=== PATIENT | female | born 1945 | race Caucasian/White ===

== ENCOUNTER → 2017-12-11 16:37 | Outpatient (CLI) | payer MEDICARE, SELFPAY | PROVIDERS: Family Provider Family Medicine; PCP Family Medicine; Visit Provider Family Medicine | DX: M54.5 Low back pain (principal) | CPT/HCPCS: 72110 ==

== ENCOUNTER → 2017-12-21 10:54 | Outpatient (CLI) | payer MEDICARE, SELFPAY | PROVIDERS: Family Provider Family Medicine; PCP Family Medicine; Visit Provider Family Medicine | DX: M54.5 Low back pain (principal) | CPT/HCPCS: 72148 ==

== ENCOUNTER 2018-07-04 19:37 | Observation (INO) | payer MEDICARE, SELFPAY ==
[2018-07-04 19:37] VITALS: BP 166/58; PULSE 74; RESP 14; RESP 19; TEMP 36.6; O2SAT 100; O2SAT 98; BMI 22.6
--- NOTE | 2018-07-04 19:50 | EKG12_ITS ---
Test Reason : CP Blood Pressure : / mmHG Vent. Rate : 062 BPM Atrial Rate : 062 BPM P-R Int : 114 ms QRS Dur : 080 ms QT Int : 436 ms P-R-T Axes : 113 056 049 degrees QTc Int : 442 ms Normal sinus rhythm Normal ECG Confirmed by ANALIA DURAN, DENTON ([id number]), editorial project manager ALIREZA MORATAYA ([id number]) on 07/09/2018 8:43:18 AM Referred By: SUBHASH Confirmed By:DENTON HELMS MD
--- NOTE | 2018-07-04 19:55 | RAD_ITS ---
STUDY: X-RAY CHEST REASON FOR EXAM: Female, 73 years old. Chest pain. TECHNIQUE: Single frontal view of the chest. COMPARISON: None July 31, 2016. FINDINGS: There is no new focal consolidation. Normal size heart. Normal mediastinum and jerry. Normal visualized pulmonary arteries. Normal visualized aortic arch and descending thoracic aorta. Normal visualized thoracic spine. Normal visualized ribs, clavicles, and shoulders. There is no demonstrated abnormality of the visualized soft tissue structures of the upper abdomen. RAD/Chest 1 View (Portable) IMPRESSION: No acute cardiopulmonary process. Electronically Signed: Neva Agudelo MD at 20:11 EST Tel , Service support ,
[2018-07-04 20:13] VITALS: O2SAT 100
--- NOTE | 2018-07-04 20:20 | ED.RN ---
WHILE WALKING TO TRIAGE FROM THE SCALE PT BECAME LIMP. SHE WAS ASSISTED TO THE GROUND. I THEN LIFTED HER TO THE BED IN THE TREATMENT ROOM. RN PROTOCOLS INITIATED AND EKG OBTAINED. Barron HOLT RN 2020
[2018-07-04 20:24] LABS: Absolute Lymphocyte Count 2.76 X10^3/ul (0.83-4.51); Absolute Neutrophil Count 2.3 X10^3/uL (2.0-7.7); Basophil# 0.07 X10^3/uL; Basophil% 1.3 % (0-1); Eosinophil# 0.11 X10^3/uL; Hematocrit 38.4 % (37-47); Hemoglobin 12.5 g/dl (12.0-15.0); Lymphocyte # 2.76 X10^3/ul (4.0); Lymphocyte % 49.7 % (19-41); Mean Corp Hgb Conc 32.6 g/gl (32-36); Mean Corpuscular Hgb 29.9 pg (27.0-32.0); Mean Corpuscular Volume 91.9 fL (81-99); Mean Platelet Vol. 10.7 fl (6.2-12.0); Monocyte# 0.27 X10^3/uL; Monocyte% 4.9 % (0-10); Neutrophil # 2.34 X10^3/uL (2.7-7.7); Neutrophil % 42.1 % (47-70); Platelet Count 253 K/mm3 (150-450); RBC Distribution Width CV 13.2 % (11.6-14.6); RBC Distribution Width SD 44.1 fl (35.1-43.9); Red Blood Count 4.18 M/mm3 (4.2-5.4); White Blood Count 5.6 K/mm3 (4.4-11.0)
[2018-07-04 20:27] LABS: POSITIVE COUNT NO; POSITIVE DIFFERENTIAL NO; POSITIVE MORPHOLOGY NO
[2018-07-04 20:41] LABS: Anion Gap 8 (5-15); BUN 16 mg/dL (7-18); BUN/Creat Ratio 17.3 RATIO (10-20); Calcium,Total 8.7 mg/dL (8.5-10.1); Chloride 111 mmol/L (98-107); Creatinine, Serum 0.92 mg/dL (0.55-1.02); EST Glomerular Filtration Rate 63 mL/min (>60); Est Glom Filt Rate - Afr Amer 76 mL/min (>60); Estimated Creatinine Clearance 43.07 ml/min; Glucose 87 mg/dL (74-106); Potassium 3.3 mmol/L (3.5-5.1); Sodium Level 142 mmol/L (136-145)
[2018-07-04] MEDS: Aspirin 81 MG TAB.CHEW 243 MG PO (21:07)
[2018-07-04 21:16] LABS: D-Dimer Quantitative (DVT/PE) 0.42 FEU/ug/m (0.27-0.49)
[2018-07-04 21:18] VITALS: BP 166/64; PULSE 50; RESP 16; O2SAT 100
--- NOTE | 2018-07-04 21:55 | PCM.HP.STD ---
Problem List (1) Chest pain Status: Acute History of Present Illness Date of Admission: 07/04/18 Chief Complaint: Palpitations The patient is a 73 year old F with a significant history of lupus; former tobacco abuse and hypothyroidism who presented to the emergency department because of fluttering of her chest that started a few hours before her presentation. She reports that the fluttering of her chest turned to pressure at the left side of her chest radiating to her back. She describes her chest pain as 5 out of 10. She denies any nausea, vomiting or diaphoresis. She reports jerky movement of her body and feeling cold. She denies any aggravating or ameliorating factors to her chest pain. At home she took 1 tablet of baby aspirin and she was given 3 tablets baby aspirin at the emergency departments. While on the scale at ED triage she reported a syncopal episode. However triage nurse did not think the patient actually passed out. Associated with her symptoms is weakness. She reported that at home she checked her blood pressure and although she does not have a history of high blood pressure her initial blood pressure was 186/71; and her repeated blood pressure in about 20 minutes time was 181/69. She reports numbness of her lips that has disappeared by the time of my examination. Associated with her symptoms is lightheadedness. She reported that many years ago as part of a workup for lupus she had a stress test. Patient reported that her mother from a heart attack at the age of 49. However she reported that her mother had an unhealthy lifestyle including smoking. Past Medical History Past Medical History (Chronic Problems): Chronic Problems Hypothyroidism (Chronic) HLD (hyperlipidemia) (Chronic) Allergies meperidine HCl [From Demerol] Allergy (Verified 07/04/18 19:45) Other povidone-iodine [From Betadine] Allergy (Verified 07/04/18 19:45) Rash soap [From Betadine] Allergy (Verified 07/04/18 19:45) Rash trimethobenzamide HCl [From Tigan] Allergy (Verified 07/04/18 19:45) Other acetaminophen [From Vicodin] Adverse Reaction (Verified 07/04/18 19:45) Nausea/Vom/Diarrhea ezetimibe [From Zetia] Adverse Reaction (Verified 07/04/18 19:45) Pain in joints hydrocodone bitartrate [From Vicodin] Adverse Reaction (Verified 07/04/18 19:45) Nausea/Vom/Diarrhea oxycodone HCl [From Percodan] Adverse Reaction (Verified 07/04/18 19:45) Nausea/Vom/Diarrhea oxycodone terephthalate [From Percodan] Adverse Reaction (Verified 07/04/18 19:45) Nausea/Vom/Diarrhea Home Medications: Ambulatory Orders Medication Instructions Recorded Levothyroxine Sodium [Synthroid] 75 mcg PO DAILY 07/04/18 traMADol [Ultram (G)] 50 mg PO Q8H PRN 07/04/18 Surgical History: cholecystectomy, colectomy, hysterectomy, fusion Lives: Spouse/ Significant Other Smoking Status: Former smoker Alcohol: None - *Family History Maternal History Items: Heart Disease - Her mother from heart attack at the age of 49. Review of Systems Constitutional: Denies: Fever, Weight Change HEENT: Denies: Head Aches, Sinus Congestion, Sinus Drainage Cardiovascular: Reports: Chest Pain, Palpitations, Syncope Respiratory: Denies: Cough, Shortness of breath at rest, Sputum production Gastrointestinal: Denies: Abdominal Pain, Nausea, Vomiting Genitourinary: Denies: Dysuria Musculoskeletal: Denies: Joint Pain, Joint Tenderness Skin: Denies: Rash, Wounds Neurological: Reports: Numbness - MOUTH. Denies: Focal weakness, Tingling Psychiatric: Denies: Anxiety, Depression, Homicidal Ideations, Suicidal Ideations Hematologic/ Lymphatic: Denies: Easy Bruising, Easy Bleeding VTE Information - Inpt Only VTE Present on Admission: No VTE Mechan Device Prophylaxis: None VTE Pharm Prophylaxis ordered?: Yes - Physical Exam General: Alert, Oriented x3, Cooperative HEENT: Atraumatic, PERRLA, EOMI, Normocephalic Neck: Supple, No JVD, Negative Carotid Bruits Lungs: Clear to auscultation, Normal air movement Cardiovascular: Regular rate, No murmurs Abdomen: Bowel Sounds Present, Soft, Non Tender Extremities: No edema, Capillary Refill Less than 3 Seconds Skin: No rashes, No breakdown Musculoskeletal: No Tenderness to Palpation of Joints or Extremities Neurological: Neuro grossly intact Psych/Mental Status: Normal Affect, Appropriate Vital Signs Temp Pulse Resp BP Pulse Ox 97.9 F 50 L 16 166/64 H 100 07/04/18 19:37 07/04/18 21:18 07/04/18 21:18 07/04/18 21:18 07/04/18 21:18 Oxygen Flow Rate (L/min) 2 Oxygen Delivery Method Nasal Cannula Weight: 56.245 kg Body Mass Index (BMI) 22.6 Laboratory Tests Past 24 Hrs 07/04/18 07/04/18 07/04/18 20:15 20:15 20:15 WBC 5.6 RBC 4.18 L Hgb 12.5 Hct 38.4 MCV 91.9 MCH 29.9 MCHC 32.6 RDW 13.2 RDW Differential 44.1 H Plt Count 253 MPV 10.7 Immature Gran % (Auto) 0.000 Neut % (Auto) 42.1 L Lymph % (Auto) 49.7 H [place] % (Auto) 4.9 Eos % (Auto) 2.0 Baso % (Auto) 1.3 H Absolute Neuts (auto) 2.3 Absolute Lymphs (auto) 2.76 Total Counted Not Reportable D-Dimer Quant (PE/DVT) 0.42 Sodium 142 Potassium 3.3 L Chloride 111 H Carbon Dioxide 23.0 Anion Gap 8 BUN 16 Creatinine 0.92 Estim Creat Clear Calc 43.07 Est GFR (MDRD) Af Amer 76 Est GFR (MDRD) Non-Af 63 BUN/Creatinine Ratio 17.3 Glucose 87 Calcium 8.7 Troponin I < 0.015 Assessment/Plan All Active Problems Chest pain (Acute) The patient is a 73 year old F with a significant history of lupus; former tobacco abuse and hypothyroidism who presented with palpitation; chest pain; presyncope/syncopal episode; as well as elevated blood pressure without diagnosis of hypertension. Chest pain Admit to a monitored bed on PCU CXR independently reviewed confirms no acute cardiopulmonary process. Patient had 2 EKGs at emergency department. Both EKGs independently reviewed does not show any ST or T wave abnormalities. Both EKG showed sinus rhythm. Received aspirin at 243 mg at emergency department since the patient already took 1 baby aspirin before presentation. ASA 81 mg p.o. daily High intensity statin x1 ordered. SL NTG 0.4 mg prn as needed for chest pain We will check lipid panel. Serial cardiac enzymes Stat EKG as needed for chest pain Treadmill stress test in the AM if the cardiac enzymes are negative Syncope Management as in chest pain. Will order echocardiogram. We will check orthostatic hypotension. Will hydrate with lactated Ringer's with potassium as especially as patient is hypokalemic. Hypokalemia On presentation her potassium was 3.3. Received 40 mEq of potassium in the emergency department. Will hydrate with lactated Ringer's with potassium. Check magnesium level. Trend BMP. Elevated blood pressure without diagnosis of hypertension. On presentation patient's blood pressure was elevated with a systolic blood pressure more than 160. Will order hydralazine as needed. Hypothyroidism With symptoms of chest pain; palpitations and presyncope/syncopal episode will check TSH. Home Synthroid continued SLE She reports generalized pain due to her lupus Tramadol continued. DVT Prophylaxis Subcutaneous Lovenox. Code Visit OBSV E&M: 40489 Initial observation care L3
[2018-07-04 22:30] VITALS: BP 161/78; PULSE 60; RESP 12; O2SAT 97
--- NOTE | 2018-07-04 23:24 | ECHOD_ITS ---
Reason For Study: Chest Pain Procedure This was a 2D Doppler, Color Flow transthoracic echocardiogram. Exam performed in department. Left Ventricle Normal LV size. Left ventricular systolic function is normal. The estimated ejection fraction is 55 %. Stage 2 diastolic dysfunction. No regional wall motion abnormalities noted. Right Ventricle Normal RV size. Atria Normal left atrium. Normal right atrium. Mitral Valve Normal mitral valve. Mild (1+) mitral valve insufficiency. Tricuspid Valve Normal tricuspid valve. Mild (1+) tricuspid valve insufficiency. Pulmonary artery systolic pressure is 24 mmHg. Aortic Valve Normal aortic valve. Trisinus/trileaflet aortic valve. Pulmonic Valve Normal pulmonic valve. Great Vessels Normal aortic root. The pulmonary artery is normal size. Normal inferior vena cava. Pericardium/Pleural No pericardial effusion. MMode/2D Measurements & Calculations LVIDd: 3.7 cm IVSd: 1.2 cm Ao root diam: 2.7 cm LVIDs: 2.3 cm LVPWd: 1.1 cm RVDd: 2.9 cm FS: 37.6 % LAV(MOD-bp): 30.9 ml LVAd ap4: 20.2 cm2 SV(MOD-sp4): 29.4 ml LAV(MOD-bp) Indexed: 19.7 ml/m2 EDV(MOD-sp4): 50.4 ml LAV(MOD-sp2): 29.6 ml EDV(sp4-el): 50.7 ml LAV(MOD-sp4): 31.0 ml LVAs ap4: 11.9 cm2 ESV(MOD-sp4): 21.0 ml ESV(sp4-el): 20.5 ml EF(MOD-sp4): 58.4 % EF(sp4-el): 59.5 % SV(sp4-el): 30.2 ml LA A4 area: 13.4 cm2 LA dimension(2D): 3.2 cm RA A4 area: 12.1 cm2 Doppler Measurements & Calculations MV E max michael: 78.9 cm/sec Lat Peak E' Michael: 5.6 cm/sec Med Peak E' Michael: 4.7 cm/sec MV A max michael: 67.9 cm/sec E/E' lat: 14.1 E/E' med: 16.7 MV E/A: 1.2 Ao V2 max: 152.1 cm/sec LV V1 max: 89.8 cm/sec PA V2 max: 73.8 cm/sec Ao max P.2 mmHg LV V1 max P.2 mmHg Ao V2 mean: 105.4 cm/sec Ao mean P.8 mmHg Ao V2 VTI: 34.4 cm TR max michael: 230.6 cm/sec TR max P.3 mmHg Interpretation Summary Normal LV size. Left ventricular systolic function is normal. The estimated ejection fraction is 55 %. Stage 2 diastolic dysfunction. Mild (1+) mitral valve insufficiency. Pulmonary artery systolic pressure is 24 mmHg. Ordering Physician: Valente Puga Referring Physician: Jon Hess Performed By: Bhargavi Barajas, LUCIA, RVT
--- NOTE | 2018-07-04 23:24 | EKG12_ITS ---
Test Reason : CP Blood Pressure : / mmHG Vent. Rate : 067 BPM Atrial Rate : 067 BPM P-R Int : 112 ms QRS Dur : 076 ms QT Int : 412 ms P-R-T Axes : 052 063 054 degrees QTc Int : 435 ms Normal sinus rhythm Normal ECG Confirmed by ANALIA DURAN, DENTON ([id number]), mapping editor ALIREZA MORATAYA ([id number]) on 07/09/2018 8:43:37 AM Referred By: SUBHASH Confirmed By:DENTON HELMS MD
[2018-07-04 23:31] VITALS: PULSE 55
[2018-07-04 23:37] VITALS: BMI 22.7
--- NOTE | 2018-07-04 23:37 | ED.DCSUM_ITS ---
- ER Visit Summary Date of Service: 07/04/18 Chief Complaint: Chest pain History of Present Illness: The patient is a 73 F who reports feeling palpitations that started at 7 PM this evening. She states her heart failure was skipping beats and then would race. She talked her primary care physician who was concerned she may be in A. fib. She states she then developed chest pressure in the left side of her chest. She took 1 baby aspirin. Shortly after arrival to the emergency room she states she felt very weak all over her lips became numb. She reports having a syncopal episode while in triage. After speaking with the triage nurse, he said the patient stepped off of the scale in her legs gave out on her. He caught her and lowered her to the floor. He does not believe she never fully lost consciousness. Patient denies that she was having palpitations during that episode. Past history is significant for high cholesterol, hypothyroidism, and lupus. Physical Examination: Blood pressure is 166/58, heart rate 74, respiratory rate 19, pulse ox 100% on 2 L nasal cannula. Head neck examination is unremarkable. Heart is regular rate and rhythm. Lung sounds are clear. Abdomen is soft nontender. Lower extreme examination was no calf tenderness or edema. Test Results: Portable chest x-ray shows no acute process. EKG is sinus at 67 with no sign of acute ischemia. CBC is normal. Chemistry studies significant only for potassium 3.3. Troponin is negative. D-dimer is normal. Emergency Department Course and Treatment: Patient received 3 additional baby aspirin here along with 40 mEq of potassium chloride. Test results are discussed with patient and family members. Patient will be admitted for further observation and testing. Treatment Plan: [] Disposition: Admit Impression: 1. Chest pain 2. Palpitations 3. Syncope 4. Hypokalemia This note was generated with [employer] dictation software. It may contain incorrect words, spelling, and punctuation that were not noted in review of the chart prior to signing ED Disposition - Plan for ED Patient: Disposition: Acute Care [facility]
[2018-07-05] VITALS (8 sets, daily range): BP systolic 141–152; BP diastolic 59–74; PULSE 49–64; RESP 16–18; TEMP 36.6–36.8; O2SAT 95–98
[2018-07-05 00:09] LABS: Magnesium 1.9 mg/dL (1.6-2.6); Thyroid Stim Hormone (TSH) 2.66 uIU/mL (0.358-3.74)
[2018-07-05] MEDS: 0.9% NaCl Peripheral Flush Adult/Peds IV ×2 (00:17→04:24)
[2018-07-05] MEDS: Atorvastatin Calcium 80 MG Tablet PO (00:29)
[2018-07-05 02:37] LABS: Absolute Lymphocyte Count 2.19 X10^3/ul (0.83-4.51); Absolute Neutrophil Count 2.3 X10^3/uL (2.0-7.7); Basophil# 0.08 X10^3/uL; Basophil% 1.6 % (0-1); Eosinophil# 0.12 X10^3/uL; Eosinophils% 2.4 % (0-5); Hematocrit 37.5 % (37-47); Hemoglobin 12.1 g/dl (12.0-15.0); Lymphocyte # 2.19 X10^3/ul (4.0); Lymphocyte % 44.3 % (19-41); Mean Corp Hgb Conc 32.3 g/gl (32-36); Mean Corpuscular Volume 92.8 fL (81-99); Mean Platelet Vol. 10.5 fl (6.2-12.0); Monocyte# 0.29 X10^3/uL; Monocyte% 5.9 % (0-10); Neutrophil # 2.25 X10^3/uL (2.7-7.7); Neutrophil % 45.6 % (47-70); POSITIVE COUNT NO; POSITIVE DIFFERENTIAL NO; POSITIVE MORPHOLOGY NO; Platelet Count 222 K/mm3 (150-450); RBC Distribution Width CV 13.2 % (11.6-14.6); RBC Distribution Width SD 44.6 fl (35.1-43.9); Red Blood Count 4.04 M/mm3 (4.2-5.4); White Blood Count 4.9 K/mm3 (4.4-11.0)
[2018-07-05 02:41] LABS: International Normalized Ratio 0.9; Prothrombin Time (Protime)PT. 12.4 SECONDS (11.7-14.9)
[2018-07-05 02:42] LABS: Partial Thromboplast Time 28.8 Seconds (24.1-36.2)
[2018-07-05 03:25] LABS: Anion Gap 6 (5-15); BUN 13 mg/dL (7-18); BUN/Creat Ratio 15.3 RATIO (10-20); Calcium,Total 8.3 mg/dL (8.5-10.1); Chloride 114 mmol/L (98-107); Cholesterol 191 mg/dL (200); Creatinine, Serum 0.85 mg/dL (0.55-1.02); EST Glomerular Filtration Rate 70 mL/min (>60); Est Glom Filt Rate - Afr Amer 85 mL/min (>60); Estimated Creatinine Clearance 46.62 ml/min; Glucose 88 mg/dL (74-106); High Density Lipoprotein 55 mg/dL; Potassium 4.3 mmol/L (3.5-5.1); Sodium Level 144 mmol/L (136-145); Triglycerides 80 mg/dL; Very Low Density Lipoprotein 16 mg/dL (5-40)
[2018-07-05] MEDS: Levothyroxine 75 MCG Tablet PO (05:50)
[2018-07-05] MEDS: Aspirin E.C. 81 MG Tablet PO (05:50)
--- NOTE | 2018-07-05 05:55 | EKG12_ITS ---
Test Reason : AM Blood Pressure : / mmHG Vent. Rate : 055 BPM Atrial Rate : 055 BPM P-R Int : 126 ms QRS Dur : 084 ms QT Int : 454 ms P-R-T Axes : 069 049 044 degrees QTc Int : 434 ms Sinus bradycardia Otherwise normal ECG When compared with ECG of 04-JUL-2018 23:15, MANUAL COMPARISON REQUIRED, DATA IS UNCONFIRMED Confirmed by ANALIA DURAN, DENTON ([id number]), editorial clerk ALIREZA MORATAYA ([id number]) on 07/12/2018 8:58:29 AM Referred By: Confirmed By:DENTON HELMS MD
--- NOTE | 2018-07-05 09:22 | STRESSREP_ITS ---
Stress Test Report Exercise myocardial perfusion stress test. 73-year-old lady with a history of chest pain. Stress protocol: Sinus bradycardia with a rate of 51 bpm resting blood pressure 152/72. The patient exercised according to the regular Arturo protocol for total duration of 5 minutes. The maximum heart rate attained was 162 bpm which was 110% of m aximum predicted heart rate the maximum workload was 7 metabolic equivalents. At rest there were no ST or T wave changes noted suggest ischemia at peak exercise upsloping ST changes only were noted with no meet the criteria for ischemia. No clinical angina was noted. The test was terminated due to shortness of breath. Resting blood pressure 152/72 with a peak blood pressure of 200/84. Rate pressure product was 32,000. Myocardial perfusion protocol. 11.1 mCi of technetium 99m sestamibi was injected at rest. Patient exercised according to regular Arturo protocol for total duration of 5 minutes at peak exercise 31.6 mCi of technetium 99m sestamibi was injected stress images were obtained stress and rest images were reconstructed and compared in the short axis vertical long horizontal long axis. Gated images were also obtained Perfusion SPECT analysis: Review of the stress images demonstrate normal uptake of tracer noted in all areas of the myocardium. The resting images similarly demonstrate normal uptake of tracer noted in all areas of the myocardium. No areas of reversibility are noted suggest ischemia no previous infarct is noted. Gated SPECT analysis. The gated ejection fraction is noted to be 74%. Conclusion: Normal exercise myocardial perfusion stress test at a moderate workload. Preserved ejection fraction.
--- NOTE | 2018-07-05 11:42 | DCINST_ITS ---
You will use the following diet at home:: No restrictions Your food should be the consistency of: Regular Your liquids should be the consistency of: Regular/Thin Discharge Activity: Return to Normal Activity Weight Bearing Status: Full weight bearing Allergies/Adverse Reactions: Allergies meperidine HCl [From Demerol] Allergy (Verified 07/04/18 19:45) Other povidone-iodine [From Betadine] Allergy (Verified 07/04/18 19:45) Rash soap [From Betadine] Allergy (Verified 07/04/18 19:45) Rash trimethobenzamide HCl [From Tigan] Allergy (Verified 07/04/18 19:45) Other acetaminophen [From Vicodin] Adverse Reaction (Verified 07/04/18 19:45) Nausea/Vom/Diarrhea ezetimibe [From Zetia] Adverse Reaction (Verified 07/04/18 19:45) Pain in joints hydrocodone bitartrate [From Vicodin] Adverse Reaction (Verified 07/04/18 19:45) Nausea/Vom/Diarrhea oxycodone HCl [From Percodan] Adverse Reaction (Verified 07/04/18 19:45) Nausea/Vom/Diarrhea oxycodone terephthalate [From Percodan] Adverse Reaction (Verified 07/04/18 19:45) Nausea/Vom/Diarrhea Medications to take at Discharge Levothyroxine Sodium [Synthroid] 75 mcg PO DAILY 07/04/18 traMADol [Ultram] 50 mg PO Q8H PRN 07/04/18 Primary Care Physician: Jon Hess DO [Primary Care Provider] - Please follow up with your Primary Care Physician in: in 7-10 days Test Results: Test results from this visit will be discussed in further detail at your follow- up appointment, if applicable.
--- NOTE | 2018-07-07 10:39 | PCM.DC.SUM ---
Discharge Date and Diagnosis Date of Admission: 07/04/18 Date of Discharge: 07/05/18 - Primary Discharge Diagnosis #1 musculoskeletal chest pain #2 syncope-etiology unknown #3 hypothyroidism #4 hyperlipidemia - Secondary Discharge Diagnosis Chronic Problems Hypothyroidism (Chronic) HLD (hyperlipidemia) (Chronic) Hospital Course and Treatment Operations: None Procedures: 2-D Echocardiogram, Nuclear stress test Summary of Care Provided: The patient is a 73 year old F who was seen in the emergency room at [facility] after suffering a syncopal episode in the ER.. She also complained of chest pain. Patient also complained of palpitations prior to the syncopal episode. Personnel in the ER however stated that they did not witness a true syncopal episode-patient denies this and states that she passed out for short period of time. Workup in the emergency room included a chest x-ray which showed no acute disease, EKG showed a sinus rhythm at 67 with no signs of acute ischemia. CBC was normal, chemistry studies showed a potassium of 3.3. Troponin was negative, d-dimer was normal. Patient was given potassium chloride in the emergency room as well as 3 additional baby aspirins, she was placed in observation status on PCU and cardiac enzymes were cycled these were negative. Patient underwent an exercise myocardial perfusion stress test which was unremarkable for reversible ischemia. Patient also underwent an echocardiogram which was unremarkable. I talked to the patient about having a Holter monitor placed, she did not want to do this, I strongly recommended her to talk with her family practitioner about getting a 30-day monitor. Physical exam: On examination she appeared in good health and spirits. Vital signs as documented. Skin warm and dry and without overt rashes. Neck without JVD. Lungs clear. Heart exam notable for regular rhythm, normal sounds and absence of murmurs, rubs or gallops. Abdomen unremarkable and without evidence of organomegaly, masses, or abdominal aortic enlargement. Extremities nonedematous. Neuro: Cranial nerves II through XII are grossly intact, no focal motor deficits were noted, sensation to light touch and pinprick is intact. Psych: Patient is alert and oriented x3, she does not appear anxious or depressed On 07/05/18, patient was seen and examined in follow-up in stable condition for discharge home - Physical Exam Vital Signs Temp Pulse Resp BP Pulse Ox 98.2 F 55 L 16 141/60 H 97 07/05/18 12:59 07/05/18 12:59 07/05/18 12:59 07/05/18 12:59 07/05/18 12:59 Oxygen Flow Rate (L/min) 2 Oxygen Delivery Method Room Air Weight: 57.3 kg Body Mass Index (BMI) 22.7 Intake and Output for Last 24 Hours 07/05/18 07/06/18 07/08/18 23:59 23:59 00:59 Intake Total 739 / 739 Balance 739 / 739 Discharge Activity: Return to Normal Activity Weight Bearing Status: Full weight bearing Home Medications: Medications to take at Discharge Levothyroxine Sodium [Synthroid] 75 mcg PO DAILY 07/04/18 traMADol [Ultram] 50 mg PO Q8H PRN 07/04/18 Primary Care Physician: Jon Hess DO [Primary Care Provider] - Please follow up with your Primary Care Physician in: in 7-10 days Disposition: Home Minutes spent on discharge:: 32 Patient Condition:: Stable Medical Necessity - Tobacco Use Smoking Status: Former smoker Meaningful Use Info Meaningful Use Diagnoses (Choose all that apply): None applicable Code Visit OBSV E&M: 24590 Observation care discharge
== END 2018-07-05 11:42 | disposition home or self-care (01) ==
LOC: ED 21:07 → PCU 22:47
PROVIDERS: Admitting Provider Hospitalist; Emergency Provider Emergency Medicine; Family Provider Family Medicine; PCP Family Medicine; Visit Provider Internal Medicine
DX: R07.89 Other chest pain (principal); R55 Syncope and collapse; E78.5 Hyperlipidemia, unspecified; E03.9 Hypothyroidism, unspecified; Z79.899 Other long term (current) drug therapy; Z87.891 Personal history of nicotine dependence; M32.9 Systemic lupus erythematosus, unspecified; R42 Dizziness and giddiness; R20.0 Anesthesia of skin; E87.6 Hypokalemia; R00.2 Palpitations; R03.0 Elevated blood-pressure reading, without diagnosis of hypertension
CPT/HCPCS: 36415; 71045; 78452; 80048; 80061; 83735; 84443; 84484; 85025; 85379; 85610; 85730; 93005; 93017; 93306; 96360; 96361; 99218; 99285; A9500; J7120; A4216; G0378

== ENCOUNTER → 2018-10-14 08:48 | Outpatient (CLI) | payer MEDICARE, SELFPAY ==
[2018-07-24 08:22] VITALS: BMI 21.9
[2018-10-14 10:20] LABS: Absolute Lymphocyte Count 1.48 X10^3/ul (0.83-4.51); Absolute Neutrophil Count 3.1 X10^3/uL (2.0-7.7); Basophil# 0.06 X10^3/uL; Basophil% 1.2 % (0-1); Eosinophil# 0.08 X10^3/uL; Eosinophils% 1.6 % (0-5); Hematocrit 40.5 % (37-47); Hemoglobin 13.3 g/dl (12.0-15.0); Lymphocyte # 1.48 X10^3/ul (4.0); Mean Corp Hgb Conc 32.8 g/gl (32-36); Mean Corpuscular Hgb 30.2 pg (27.0-32.0); Mean Corpuscular Volume 91.8 fL (81-99); Mean Platelet Vol. 10.4 fl (6.2-12.0); Monocyte# 0.17 X10^3/uL; Monocyte% 3.4 % (0-10); Neutrophil # 3.14 X10^3/uL (2.7-7.7); Neutrophil % 63.8 % (47-70); POSITIVE COUNT NO; POSITIVE DIFFERENTIAL NO; POSITIVE MORPHOLOGY NO; Platelet Count 241 K/mm3 (150-450); RBC Distribution Width CV 12.9 % (11.6-14.6); RBC Distribution Width SD 43.3 fl (35.1-43.9); Red Blood Count 4.41 M/mm3 (4.2-5.4); White Blood Count 4.9 K/mm3 (4.4-11.0)
[2018-10-14 10:49] LABS: ALB/GLOB Ratio 0.9 RATIO (0.9-2.4); AST(SGOT) 14 U/L (15-37); Alanine Aminotransfer ALT/SGPT 19 U/L (13-56); Albumin, Serum 3.5 g/dL (3.2-5.0); Alkaline Phosphatase 55 U/L (45-117); Anion Gap 10 (5-15); BUN 23 mg/dL (7-18); BUN/Creat Ratio 27.5 RATIO (10-20); Calcium,Total 8.9 mg/dL (8.5-10.1); Chloride 108 mmol/L (98-107); Creatinine, Serum 0.84 mg/dL (0.55-1.02); EST Glomerular Filtration Rate 71 mL/min (>60); Est Glom Filt Rate - Afr Amer 86 mL/min (>60); Globulin 3.7 g/dL (2.2-4.2); Glucose 89 mg/dL (74-106); Potassium 4.5 mmol/L (3.5-5.1); Protein, Total 7.2 g/dL (6.4-8.2); Sodium Level 144 mmol/L (136-145); T4 Free Direct 1.03 ng/dL (0.76-1.46); Thyroid Stim Hormone (TSH) 1.47 uIU/mL (0.358-3.74)
== END ==
PROVIDERS: Family Provider Family Medicine; PCP Family Medicine; Referring Provider Family Medicine; Visit Provider Family Medicine
DX: M32.9 Systemic lupus erythematosus, unspecified (principal); E03.9 Hypothyroidism, unspecified; Z51.81 Encounter for therapeutic drug level monitoring
CPT/HCPCS: 36415; 80053; 84439; 84443; 85025

== ENCOUNTER → 2019-04-03 11:26 | Outpatient (CLI) | payer MEDICARE, SELFPAY ==
[2018-07-24 08:22] VITALS: BMI 21.9
[2019-04-03 14:10] LABS: Absolute Lymphocyte Count 1.45 X10^3/uL (0.83-4.51); Absolute Neutrophil Count 3.3 X10^3/uL (2.0-7.7); Basophil# 0.09 X10^3/uL; Basophil% 1.7 % (0-1); Eosinophils% 1.9 % (0-5); Hematocrit 39.6 % (37-47); Hemoglobin 12.9 g/dL (12.0-15.0); Lymphocyte # 1.45 X10^3/ul (4.0); Mean Corp Hgb Conc 32.6 g/dL (32-36); Mean Corpuscular Hgb 30.2 pg (27.0-32.0); Mean Corpuscular Volume 92.7 fL (81-99); Mean Platelet Vol. 10.8 fl (6.2-12.0); Monocyte# 0.27 X10^3/uL; Monocyte% 5.2 % (0-10); NRBC Flagged by Analyzer 0 % (0-5); Neutrophil # 3.27 X10^3/uL (2.7-7.7); Neutrophil % 63.2 % (47-70); Platelet Count 239 K/mm3 (150-450); RBC Distribution Width CV 12.7 % (11.6-14.6); RBC Distribution Width SD 43.4 fl (35.1-43.9); Red Blood Count 4.27 M/mm3 (4.2-5.4); White Blood Count 5.2 K/mm3 (4.4-11.0)
[2019-04-03 14:22] LABS: Erythrocyte Sedimentation Rate 17 mm/hr (0-30)
[2019-04-03 14:35] LABS: ALB/GLOB Ratio 1.1 RATIO (0.9-2.4); AST(SGOT) 11 U/L (15-37); Alanine Aminotransfer ALT/SGPT 15 U/L (13-56); Albumin, Serum 3.7 g/dL (3.2-5.0); Alkaline Phosphatase 58 U/L (45-117); Anion Gap 5 (5-15); BUN 19 mg/dL (7-18); BUN/Creat Ratio 20.7 RATIO (10-20); CRP < 2.90 mg/L (0.0-3.0); Calcium,Total 8.9 mg/dL (8.5-10.1); Chloride 109 mmol/L (98-107); Creatinine, Serum 0.92 mg/dL (0.55-1.02); EST Glomerular Filtration Rate 64 mL/min (>60); Est Glom Filt Rate - Afr Amer 77 mL/min (>60); Ferritin 82 ng/mL (8-252); Globulin 3.5 g/dL (2.2-4.2); Glucose 92 mg/dL (74-106); Protein, Total 7.2 g/dL (6.4-8.2); Sodium Level 141 mmol/L (136-145); T4 Free Direct 1.11 ng/dL (0.76-1.46); Thyroid Stim Hormone (TSH) 0.69 uIU/mL (0.358-3.74)
[2019-04-04 13:37] LABS: Carbohydrate AG 19-9 7 U/mL (0-35)
== END ==
PROVIDERS: Family Provider Family Medicine; PCP Family Medicine; Referring Provider Family Medicine; Visit Provider Family Medicine
DX: M32.9 Systemic lupus erythematosus, unspecified (principal); E03.9 Hypothyroidism, unspecified; R53.83 Other fatigue; R63.4 Abnormal weight loss; D64.9 Anemia, unspecified; R10.9 Unspecified abdominal pain
CPT/HCPCS: 36415; 80053; 82533; 82728; 84439; 84443; 85025; 85652; 86140; 86301

== ENCOUNTER → 2019-07-31 11:29 | Outpatient (CLI) | payer MEDICARE, SELFPAY ==
[2018-07-24 08:22] VITALS: BMI 21.9
--- NOTE | 2019-07-31 11:33 | RAD_ITS ---
STUDY: X-RAY - LUMBAR SPINE REASON FOR EXAM: Female, 74 years old. Back pain, fell 2 weeks ago, not getting any better TECHNIQUE: 5 view(s) of the lumbar spine were obtained including oblique views. COMPARISON: Comparison is made with prior study dated December 11, 2017. FINDINGS: Normal lumbar lordosis. There is no substantial scoliosis. There is a normal alignment of the vertebrae. Normal vertebral bodies and endplates. There is multi-level mild degenerative disc disease with multi-level disc space narrowing. There is atherosclerotic calcification of the abdominal aorta without a demonstrated aneurysm. RAD/L/S Spine Min 4 Views IMPRESSION: Degenerative changes of the spine, as detailed above. Electronically Signed: Martin Thorne, at 15:03 EDT , Service support ,
== END ==
PROVIDERS: PCP Family Medicine; Referring Provider Family Medicine; Visit Provider Family Medicine
DX: M47.16 Other spondylosis with myelopathy, lumbar region (principal)
CPT/HCPCS: 72110

== ENCOUNTER 2020-04-12 01:02 | Emergency (ER) | payer MEDICARE, SELFPAY ==
[2018-07-24 08:22] VITALS: BMI 21.9
[2020-04-12 01:03] VITALS: BP 126/109; PULSE 61; RESP 18; TEMP 36.8; O2SAT 95; BMI 24.2
--- NOTE | 2020-04-12 01:13 | ED.VISSUMM ---
- ER Visit Summary Date of Service: 04/12/20 Chief Complaint: Nausea and vomiting with abdominal cramping History of Present Illness: The patient is a 75 F history of lupus, hypothyroidism and cholesterol problems. She has had a prior appendectomy, cholecystectomy, hysterectomy, partial colectomy and spine surgery of her neck. Patient states that around 530 6:00 tonight she got abdominal cramping in the upper abdomen associated with nausea and vomiting. She denies any diarrhea. She denies any hematemesis. She denies any melena or constipation. She denies any dysuria nor fever. No recent exposure. Physical Examination: Older female no acute distress vital signs stable afebrile. She does not look septic or toxic. She does not look severely dehydrated. HEENT exam unremarkable. Neck nontender no lymphadenopathy. Lungs clear to auscultation bilaterally. Heart regular rhythm no murmur rate about 65. Abdomen is soft. Nondistended. Normal bowel sounds. No peritoneal signs. She does have mild epigastric and right upper quadrant tenderness. No Dwyer sign. No signs of obstruction. No obvious hernias or masses. Right lower quadrant is unremarkable. Neurologically she is awake and alert with no focal motor deficits. She is moving all 4 extremities. They are nontender there is no edema. Test Results: Labs are unremarkable. CBC showed a normal white count 8 hemoglobin of 13. Chemistries unremarkable normal creatinine and gap. Liver enzymes normal. Lipase normal at 96. Repeat exam patient is doing well at 1:45 AM. Abdomen is benign. She is feeling improved. No signs of abdominal obstruction and currently nontender. Emergency Department Course and Treatment: Older female with nausea vomiting abdominal cramping. Abdominal exam is benign with mild tenderness. She has had multiple prior abdominal surgeries. Clinically at this time it does not appear to be an obstruction. She will be treated with IV fluids, Zofran for nausea and labs are being obtained. Treatment Plan: Treated as a viral gastroenteritis. Fluids and rest. Increase diet slowly. Zofran prescription as needed for nausea. Return if worse. Follow-up with not improving. Disposition: Discharge Impression: Acute nausea and vomiting with abdominal cramping Acute viral gastroenteritis History of lupus History of prior appendectomy, partial colectomy, hysterectomy and cholecystectomy This note was generated with [employer] software. It may contain incorrect words, spelling, and punctuation that were not noted in review of the chart prior to signing ED Disposition - Plan for ED Patient: Referrals: Jon Hess DO [Primary Care Provider] -
[2020-04-12] MEDS: Ondansetron 4 MG/2 ML Vial IV (01:21)
[2020-04-12] MEDS: 0.9% Normal Saline 1,000 ML 1000 ML IV (01:21)
[2020-04-12 01:30] LABS: Absolute Lymphocyte Count 1.31 X10^3/uL (0.83-4.51); Absolute Neutrophil Count 6.3 X10^3/uL (2.0-7.7); Basophil# 0.07 X10^3/uL; Basophil% 0.9 % (0-1); Eosinophil# 0.03 X10^3/uL; Eosinophils% 0.4 % (0-5); Hematocrit 39.4 % (37-47); Hemoglobin 13.2 g/dL (12.0-15.0); Lymphocyte # 1.31 X10^3/ul (4.0); Lymphocyte % 16.4 % (19-41); Mean Corp Hgb Conc 33.5 g/dL (32-36); Mean Corpuscular Hgb 30.6 pg (27.0-32.0); Mean Corpuscular Volume 91.4 fL (81-99); Mean Platelet Vol. 10.8 fl (6.2-12.0); Monocyte# 0.24 X10^3/uL; NRBC Flagged by Analyzer 0 % (0-5); Neutrophil # 6.33 X10^3/uL (2.7-7.7); Platelet Count 263 K/mm3 (150-450); RBC Distribution Width CV 12.4 % (11.6-14.6); RBC Distribution Width SD 41.5 fl (35.1-43.9); Red Blood Count 4.31 M/mm3 (4.2-5.4)
[2020-04-12 01:40] LABS: AST(SGOT) 13 U/L (15-37); Alanine Aminotransfer ALT/SGPT 16 U/L (13-56); Albumin, Serum 3.9 g/dL (3.2-5.0); Alkaline Phosphatase 59 U/L (45-117); Anion Gap 6 (5-15); BUN 10 mg/dL (7-18); BUN/Creat Ratio 10.2 RATIO (10-20); Bilirubin, Direct 0.13 mg/dL (0.00-0.30); Calcium,Total 9.7 mg/dL (8.5-10.1); Chloride 109 mmol/L (98-107); Creatinine, Serum 0.98 mg/dL (0.55-1.02); EST Glomerular Filtration Rate 59 mL/min (>60); Est Glom Filt Rate - Afr Amer 71 mL/min (>60); Estimated Creatinine Clearance 39.23 ml/min; Globulin 3.3 g/dL (2.2-4.2); Glucose 123 mg/dL (74-106); Lipase 96 U/L (73-393); Potassium 3.8 mmol/L (3.5-5.1); Protein, Total 7.2 g/dL (6.4-8.2); Sodium Level 141 mmol/L (136-145)
--- NOTE | 2020-04-12 01:49 | ED.DEP ---
ED Disposition - Plan for ED Patient: Disposition: Home or Assisted Living Instructions: ED Vomiting (Adult) Prescriptions: Ondansetron [Zofran Odt] 4 mg PO Q8H PRN PRN #7 tab PRN Reason: Nausea Prescription Printed Referrals: Jon Hess DO [Primary Care Provider] - 3-5 Days if not improving Additional Instructions: Plenty of fluids and rest. Increase diet slowly as tolerated. Zofran as needed for nausea. Follow-up with your doctor if not improving return to emergency department if you are feeling worse or unable to keep fluids down.
[2020-04-12 02:27] VITALS: RESP 16
== END 2020-04-12 02:28 | disposition home or self-care (01) ==
PROVIDERS: Emergency Provider Emergency Medicine; PCP Family Medicine
DX: A08.4 Viral intestinal infection, unspecified (principal); M32.9 Systemic lupus erythematosus, unspecified; E03.9 Hypothyroidism, unspecified; Z79.899 Other long term (current) drug therapy; Z90.49 Acquired absence of other specified parts of digestive tract; Z90.710 Acquired absence of both cervix and uterus
CPT/HCPCS: 80048; 80076; 83690; 85025; 96361; 96374; 99285; J7030; A4216; J2405

== ENCOUNTER → 2020-09-07 09:05 | Outpatient (CLI) | payer MEDICARE, SELFPAY ==
[2020-09-07 10:07] LABS: Absolute Lymphocyte Count 1.39 X10^3/uL (0.83-4.51); Absolute Neutrophil Count 2.7 X10^3/uL (2.0-7.7); Basophil# 0.08 X10^3/uL; Basophil% 1.7 % (0-1); Eosinophil# 0.16 X10^3/uL; Eosinophils% 3.5 % (0-5); Hematocrit 41.1 % (37-47); Hemoglobin 12.9 g/dL (12.0-15.0); Lymphocyte # 1.39 X10^3/ul (0.83-4.51); Lymphocyte % 30.1 % (19-41); Mean Corp Hgb Conc 31.4 g/dL (32-36); Mean Corpuscular Hgb 29.8 pg (27.0-32.0); Mean Corpuscular Volume 94.9 fL (81-99); Mean Platelet Vol. 10.6 fl (6.2-12.0); Monocyte# 0.26 X10^3/uL; Monocyte% 5.6 % (0-10); NRBC Flagged by Analyzer 0 % (0-5); Neutrophil # 2.72 X10^3/uL (2.7-7.7); Neutrophil % 58.9 % (47-70); Platelet Count 254 K/mm3 (150-450); RBC Distribution Width CV 12.5 % (11.6-14.6); Red Blood Count 4.33 M/mm3 (4.2-5.4); White Blood Count 4.6 K/mm3 (4.4-11.0)
[2020-09-07 10:36] LABS: Vitamin D,25 Hydroxy 20.8 ng/mL
[2020-09-07 11:08] LABS: AST(SGOT) 13 U/L (15-37); Alanine Aminotransfer ALT/SGPT 15 U/L (13-56); Albumin, Serum 3.8 g/dL (3.2-5.0); Alkaline Phosphatase 57 U/L (45-117); Anion Gap 5 (5-15); BUN 14 mg/dL (7-18); BUN/Creat Ratio 16.4 RATIO (10-20); Chloride 108 mmol/L (98-107); Creatinine, Serum 0.85 mg/dL (0.55-1.02); EST Glomerular Filtration Rate 69 mL/min (>60); Est Glom Filt Rate - Afr Amer 83 mL/min (>60); Globulin 3.8 g/dL (2.2-4.2); Glucose 93 mg/dL (74-106); Potassium 4.6 mmol/L (3.5-5.1); Protein, Total 7.6 g/dL (6.4-8.2); Sodium Level 140 mmol/L (136-145); Thyroid Stim Hormone (TSH) 0.74 uIU/mL (0.358-3.74)
[2020-09-07 12:45] LABS: Color, Urine Yellow (Yellow); Glucose, Dipstick Normal (Normal); Ketone-Dipstick Negative (Negative); Leukocyte Esterase-Dipstick Negative /ul (Negative); Nitrite-Dipstick Negative (Negative); Occult Blood-Urine Negative /ul (Negative); Protein-Dipstick Negative (Negative); Specific Gravity, Urine 1.015 (1.002-1.030); Urine Bilirubin Dipstick Negative (Negative); Urine Clarity Sl. Cloudy (Clear); Urine Urobilinogen Normal (Normal)
== END ==
PROVIDERS: PCP Family Medicine; Referring Provider Family Medicine; Visit Provider Family Medicine
DX: I10 Essential (primary) hypertension (principal); E03.9 Hypothyroidism, unspecified; R53.83 Other fatigue; E55.9 Vitamin D deficiency, unspecified
CPT/HCPCS: 36415; 80053; 81002; 82306; 84443; 85025

== ENCOUNTER 2021-05-17 18:06 | Outpatient (CLI) | payer MEDICARE, SELFPAY | END 2021-05-17 23:59 | disposition short-term general hospital (02) | PROVIDERS: PCP Family Medicine; Visit Provider Family Medicine | DX: U07.1 COVID-19 (principal) | CPT/HCPCS: 87635; U0003; U0005 ==

== ENCOUNTER 2021-07-20 12:04 | Outpatient (CLI) | payer MEDICARE, SELFPAY | END 2021-07-20 23:59 | disposition home or self-care (01) | LOC: PSN 12:04 | PROVIDERS: PCP Family Medicine; Referring Provider Family Medicine; Visit Provider Family Medicine | DX: R00.0 Tachycardia, unspecified (principal); R00.1 Bradycardia, unspecified | CPT/HCPCS: 93225; 93226 ==

== ENCOUNTER → 2022-01-13 | Outpatient (CLI) | payer MEDICARE, SELFPAY ==
--- NOTE | 2022-01-13 06:03 | ECHOD_ITS ---
Reason For Study: HYPERTENSION Procedure This was a 2D Doppler, Color Flow transthoracic echocardiogram. Exam performed in department. Left Ventricle Normal LV size. Left ventricular systolic function is normal. The estimated ejection fraction is 60 %. Stage 1 diastolic dysfunction. No regional wall motion abnormalities noted. Right Ventricle Normal RV size. Normal systolic function. Atria Normal left atrium. Normal right atrium. Mitral Valve Normal mitral valve. Mild (1+) eccentric mitral valve insufficiency. Tricuspid Valve Normal tricuspid valve. Mild tricuspid valve insufficiency. Pulmonary artery systolic pressure is 36 mmHg. Aortic Valve Normal aortic valve. Trisinus/trileaflet aortic valve. Pulmonic Valve Normal pulmonic valve. Great Vessels Normal aortic root. The pulmonary artery is normal size. Normal inferior vena cava. Pericardium/Pleural No pericardial effusion. MMode/2D Measurements & Calculations LVIDd: 4.7 cm IVSd: 0.74 cm Ao root diam: 3.1 cm LVIDs: 3.2 cm LVPWd: 0.73 cm RVDd: 3.0 cm FS: 32.1 % LAV(MOD-bp): 37.4 ml LVAd ap4: 22.7 cm2 SV(MOD-sp4): 36.9 ml LAV(MOD-bp) Indexed: 23.7 ml/m2 LVLd ap4: 7.0 cm LAV(MOD-sp2): 35.0 ml EDV(MOD-sp4): 61.5 ml LAV(MOD-sp4): 37.2 ml EDV(sp4-el): 62.4 ml LVAs ap4: 12.7 cm2 LVLs ap4: 5.7 cm ESV(MOD-sp4): 24.6 ml ESV(sp4-el): 23.8 ml EF(MOD-sp4): 60.1 % EF(sp4-el): 61.9 % SV(sp4-el): 38.6 ml LA A4 area: 15.5 cm2 LA dimension(2D): 3.3 cm RA A4 area: 13.9 cm2 Time Measurements MV dec time: 0.25 sec Doppler Measurements & Calculations MV E max michael: 85.3 cm/sec Lat Peak E' Michael: 7.8 cm/sec Med Peak E' Michael: 8.4 cm/sec MV A max michael: 88.9 cm/sec E/E' lat: 10.9 E/E' med: 10.1 MV E/A: 0.96 Ao V2 max: 169.6 cm/sec LV V1 max: 89.1 cm/sec PA V2 max: 98.8 cm/sec Ao max P.5 mmHg LV V1 max P.2 mmHg PI end-d michael: 97.1 cm/sec TR max michael: 285.4 cm/sec TR max P.6 mmHg ECHO/Echo Complete Interpretation Summary Normal LV size. Left ventricular systolic function is normal. The estimated ejection fraction is 60 %. Mild (1+) eccentric mitral valve insufficiency. Stage 1 diastolic dysfunction. Ordering Physician: Elise Lynn Referring Physician: ABDULLAHI TOM Performed By: Luzma Parker RDCS
--- NOTE | 2022-01-13 14:43 | STRESSREP ---
Stress Test Report Pharmacologic myocardial perfusion stress test. 76-year-old lady with a history of chest pain. Stress protocol: Resting EKG demonstrates normal sinus rhythm with a rate of 62 bpm normal intervals are noted resting blood pressure is 162/80 mmHg. 0.4 mg of regadenoson was infused per usual protocol followed by rapid intravenous saline flush injection continuous EKG monitoring was performed. The maximum heart rate attained was 109 bpm which was 75% of max impacted heart rate the maximum workload was 1 metabolic equivalent. At rest there were no ST or T wave changes noted to suggest abnormal flow reserve and at peak infusion there were no ST changes noted to suggest abnormal flow reserve. The final blood pressure was 160/78 mmHg. Myocardial perfusion protocol. 11.6 mCi of technetium 99m sestamibi was injected at rest. 0.4 mg of regadenoson was infused per usual protocol. At peak infusion 32.9 mCi of technetium 99m sestamibi was injected stress images were obtained stress and rest images were reconstructed in comparing the short axis vertical long and horizontal long axis. Gated images were also obtained. Perfusion SPECT analysis: Review of the stress images demonstrate normal uptake of tracer noted in all areas of the myocardium. The resting images similar demonstrate normal uptake of tracer noted in all areas of the myocardium. No areas of reversibility are noted to suggest ischemia and no previous infarct is noted. Gated SPECT analysis: The gated ejection fraction is noted to be 79%. Conclusion: Normal pharmacologic myocardial perfusion stress test. Preserved ejection fraction.
== END | disposition home or self-care (01) ==
PROVIDERS: PCP Family Medicine; Referring Provider Nurse Practitioner Gerontology; Visit Provider Nurse Practitioner Gerontology
DX: I10 Essential (primary) hypertension (principal); R07.9 Chest pain, unspecified
CPT/HCPCS: 78452; 93017; 93306; A9500; A4216; J2785

== ENCOUNTER 2022-01-17 08:00 | Outpatient (RCR) | payer MEDICARE, SELFPAY ==
--- NOTE | 2021-12-20 12:49 | HP.PTEVAL_ITS ---
Patient's Visit Information KENNY ISSA is a 76 year old F referred to Physical Therapy by Dr. Jon Hess DO with a diagnosis of dizziness/PRICE. Date of Evaluation: 12/20/21 Physical Therapist: DARLENE Workman - Visit Plan Frequency: 2x /Week Duration: 6 Weeks Plan: 2X/ week for 6 weeks for MT to the c-spine paraspinals/levator, mid and upper trap and some suboccip release to help with dizziness and PRICE, postural exercises, vestibular inputs, gait with head movements, gait mechanics, with HEP. HEP: pt to watch her ADL's and not push herself into too much dizziness to bring on her PRICE, work on slow c-spine rotation AROM - Subjective Pt had COVID and has long haulers. She was in bed for a week and felt bad for another week and never gone away. She has severe tachycardia. 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 She has had 4 neck surgeries. Pt had a severe neck injury in 1990. She gets really dizzy. Dr wants to make sure that the dizziness is not from COVID. Pt feels like she is drunk. When she is walking or if she gets up too fast the room spins. She is sometimes is dizzy when she gets up and the room spins. Her BP has been out of control. She is going to Dr Dodd. Turning over in bed the room spins when she turns either direction and that lasts seconds but feels like forever. She has a inversion table and when she comes up from that she has to come up slowly and then has to stay at a horizontal position for a long time or can't get off the table. She shakes so bad and not had that before COVID. She has always been extremely healthy. She was walking 2 miles everyday before COVID. She takes her BP meds 1-2 X/ week when her BP gets too high. Her BP was 190/90 last night but did not take the BP pill. She is not dizzy sitting here. She was dizzy walking in the door. She is not driving due to the dizziness. If she turns her head too fast she will get dizzy. 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 Pt has chronic PRICE and R shoulder pain down her R arm down her arm and more of a burning senstation. - Pain PRICE Pain Intensity (Out of 10): 4 R shoulder pain Pain Intensity (Out of 10): 4 LB Pain Intensity (Out of 10): 4 - Objective - Hallpike B for dizziness and nystagmus. She did get dizzy with going from hallpike positionto sitting. C-spine AROM: flex 75%, Ext 25%, Rot R 25% and Rot L 50%, SB B 25% (increase muscle tightness). Pt sitting in clinic constantly stretching thoracic and c-spine or rubbing the muscles around her neck or R arm. Palpation: tender over B occiput and levator and mid trap area B. Increase PRICE after doing FGA...(big trigger was lookin up and down) suboccip release and MT to levator and mid trap decreased severity of PRICE but sits up and everything looked dim after that. Pt reports that she was fine though. Extremely tight mid traps and upper c-spine. FGA: 11 (walking with vertical head turns was worse than horizontal as far as unsteadiness). Gait: walks with increase veering to the R, no c-spine rotation, and walks with smaller step length B. CATSIB: 68. After treatment reports that she was fine leaving treatmet - Balance/Special Test Scores Functional Gait Assessment Score: 11 % Disability: 63.3400 CATSIB Score (Max score 120 seconds): 63 Dizziness Score: 56 - Goals Goal 1:: I HEP Goal Time Frame: 6-8 Weeks - Rehabilitation Potential Rehabilitation Potential: Good - Anticipated Interventions Patient/Client Instruction: Educate patient on: Condition, Plan of Care For the Purpose of:: To decrease pain, To increase ROM, To improve nutrient delivery to tissue, To increase oxygenation perfusion, To improve muscle performance and motor function, To improve ability to perform ADL's, To increase tolerance to activity/condition/position, To improve performance and independence with ADL's, To decrease level of supervision to perform tasks, To improve ability of physical actions for home/community/work/leisure, To improve gait and locomotor functions, To improve health of tissue, To decrease soft tissue restriction, To increase flexibility/ROM, To improve endurance, To improve balance, To improve safety with gait Therapeutic Exercise to Include: Strength training, Balance training, Postural training, Flexibilty training, Neuromotor development, Passive ROM, Active ROM, Scapular Strength/Stabilization For the Purpose of:: To decrease pain, To increase ROM, To improve nutrient delivery to tissue, To improve muscle performance and motor function, To improve ability to perform ADL's, To increase tolerance to activity/condition/position, To improve performance and independence with ADL's, To decrease level of supervision to perform tasks, To improve ability of physical actions for home/community/work/leisure, To improve gait and locomotor functions, To improve health of tissue, To decrease soft tissue restriction, To increase flexibility/ ROM, To improve balance, To improve safety with gait Functional Training to Include: Gait training For the Purpose of:: To improve safety with gait Manual Therapy Techniques to Include: Soft tissue mobilization For the Purpose of:: To decrease pain, To decrease swelling/inflammation, To increase ROM, To improve nutrient delivery to tissue, To increase oxygenation perfusion, To improve muscle performance and motor function, To improve ability to perform ADL's Thank you for the opportunity to evaluate your patient. For Medicare and Medicare HMO plans, please review the plan of care and approve it. It will need to be FAXED BACK to us at [phone] for Medicare purposes. For Medicare only, by signing this I certify the plan of care. Please let me know if there are questions or concerns regarding this plan of care. Physician Signature: Date:
--- NOTE | 2022-04-17 08:52 | HP.PT.NRP ---
KENNY ISSA was seen in my office for initial evaluation on 12/20/21. The following Plan of Care was established for this patient: Initial Frequency: 2x /Week Initial Duration: 6 Weeks Patient/Client Instruction: Educate patient on: Condition, Plan of Care For the Purpose of:: To decrease pain, To increase ROM, To improve nutrient delivery to tissue, To increase oxygenation perfusion, To improve muscle performance and motor function, To improve ability to perform ADL's, To increase tolerance to activity/condition/position, To improve performance and independence with ADL's, To decrease level of supervision to perform tasks, To improve ability of physical actions for home/community/work/leisure, To improve gait and locomotor functions, To improve health of tissue, To decrease soft tissue restriction, To increase flexibility/ROM, To improve endurance, To improve balance, To improve safety with gait Therapeutic Exercise to Include: Strength training, Balance training, Postural training, Flexibilty training, Neuromotor development, Passive ROM, Active ROM, Scapular Strength/Stabilization For the Purpose of:: To decrease pain, To increase ROM, To improve nutrient delivery to tissue, To improve muscle performance and motor function, To improve ability to perform ADL's, To increase tolerance to activity/condition/position, To improve performance and independence with ADL's, To decrease level of supervision to perform tasks, To improve ability of physical actions for home/community/work/leisure, To improve gait and locomotor functions, To improve health of tissue, To decrease soft tissue restriction, To increase flexibility/ROM, To improve balance, To improve safety with gait Functional Training to Include: Gait training For the Purpose of:: To improve safety with gait Manual Therapy Techniques to Include: Soft tissue mobilization For the Purpose of:: To decrease pain, To decrease swelling/inflammation, To increase ROM, To improve nutrient delivery to tissue, To increase oxygenation perfusion, To improve muscle performance and motor function, To improve ability to perform ADL's This patient was last seen in our office 01/17/22. Pertinent comments regarding their Physical therapy will appear below: DC PT. Pt did not re schedule. At this point I will be discontinuing this patient from physical therapy. I would be happy to see this patient again in the future if found appropriate by the physician. Thank you! Jennifer Ramírez, MPT Balance/Gait/Functional tests - Balance/Special Test Scores Functional Gait Assessment Score: 11 % Disability: 63.3400 CATSIB Score (Max score 120 seconds): 63 Dizziness Score: 56
== END 2022-01-17 19:00 | disposition home or self-care (01) ==
LOC: PT 08:00
PROVIDERS: PCP Family Medicine; Referring Provider Family Medicine; Visit Provider Family Medicine
DX: M47.812 Spondylosis without myelopathy or radiculopathy, cervical region (principal); R42 Dizziness and giddiness
CPT/HCPCS: 97110; 97140; 97162

== ENCOUNTER → 2022-03-07 | Outpatient (CLI) | payer MEDICARE, SELFPAY ==
--- NOTE | 2022-03-07 16:38 | RAD_ITS ---
STUDY: X-RAY - CERVICAL SPINE REASON FOR EXAM: Female, 76 years old. NECK AND BACK PAIN TECHNIQUE: XR Spine Cervical 4 or 5 Views COMPARISON: None FINDINGS: Normal anterior atlantoaxial articulation. The odontoid process is obscured by the overlying hard palate on the open mouth view. Therefore, it is not fully evaluated by plain film. There is straightening of the normal cervical lordosis. There is multi-level endplate spondylosis. There is multi-level degenerative disc disease with multilevel disc space narrowing. There is multi-level osseous foraminal stenosis. Multilevel osseous fusion of the cervical spine. The soft tissue structures are unremarkable. RAD/Cerv Spine 4 or 5 Views IMPRESSION: There are degenerative changes as noted above. The odontoid process is obscured by the overlying hard palate on the open mouth view. Therefore, it is not fully evaluated by plain film. Electronically Signed: Ronni Kwon MD at 17:10 EST ,
== END | disposition home or self-care (01) ==
LOC: MTRAD 16:37
PROVIDERS: PCP Family Medicine; Referring Provider Family Medicine; Visit Provider Family Medicine
DX: M47.22 Other spondylosis with radiculopathy, cervical region (principal)
CPT/HCPCS: 72050

== ENCOUNTER → 2022-06-07 | Outpatient (CLI) | payer MEDICARE, SELFPAY ==
--- NOTE | 2022-06-07 07:45 | MRI_ITS ---
STUDY: MRI CERVICAL SPINE WITHOUT CONTRAST REASON FOR EXAM: Female, 77 years old. CERVICAL DISC DISORDER TECHNIQUE: Standardized fat and water weighted pulse sequences were obtained in the sagittal and axial planes. COMPARISON: MRI cervical spine without contrast 04/26/2015. FINDINGS: Normal foramen magnum and brainstem-cervical cord junction. Normal craniovertebral junction. Normal anterior atlantoaxial articulation. Normal odontoid process. Straightening of C-spine curvature is unchanged. Normal vertebral bodies and posterior osseous elements. C2-3: Normal endplates. Normal disc height, signal and morphology. Normal central canal and intervertebral neural foramina. C3-4: Normal endplates. Normal disc height, signal and morphology. Normal central canal and intervertebral neural foramina. C4-5: Postop fusion of C4 on C5 is unchanged. Normal central canal and intervertebral neural foramina. C5-6: Posterior fusion of C5 and C6 vertebral bodies. Normal central canal and intervertebral neural foramina. C6-7: Partial ankylosis of the C6 and C7 vertebral bodies. Pronounced disc space height narrowing. Normal central canal and intervertebral neural foramina. C7-T1: Normal endplates. Normal disc height and morphology. Normal central canal and left intervertebral neural foramen. Moderate stenosis of the right intervertebral neural foramen, previously mild stenosis. T1-T2, T2-T3, T3-T4 and T4-5: (Sagittal only). Normal endplates. Normal disc height and morphology. Normal central canal and intervertebral neural foramina. T5 superior endplate and the ventral half of the T4-5 disc space are not included. Normal cervical cord. Normal included upper thoracic spinal cord, brainstem and cerebellum. Normal visualized soft tissue structures. MRI/Spine Cervical (Routine) IMPRESSION: 1. 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 2. No MRI evidence of cervical disc extrusion or disc protrusion. 3. Normal cervical spinal cord. Electronically Signed: Anthony Trimble MD at 11:55 EST ,
== END | disposition home or self-care (01) ==
PROVIDERS: PCP Family Medicine; Referring Provider Anesthesiology Pain Medicine; Visit Provider Anesthesiology Pain Medicine
DX: M50.21 Other cervical disc displacement, high cervical region (principal)
CPT/HCPCS: 72141

== ENCOUNTER → 2022-06-13 | Outpatient (CLI) | payer OTHER, SELFPAY | END | disposition home or self-care (01) | LOC: LABSPEC 16:04 | PROVIDERS: PCP Family Medicine; Visit Provider Family Medicine | DX: J02.9 Acute pharyngitis, unspecified (principal) | CPT/HCPCS: 87635; U0003; U0005 ==

== ENCOUNTER 2022-07-12 23:06 | Emergency (ER) | payer MEDICARE, SELFPAY ==
[2022-07-12 23:08] VITALS: BP 157/104; PULSE 121; RESP 21; TEMP 36.8; O2SAT 99; BMI 23.3
--- NOTE | 2022-07-12 23:27 | RAD_ITS ---
INDICATION: cough EXAMINATION/TECHNIQUE: X-RAY - XR Chest 2 Views COMPARISON: 09/13/2018. FINDINGS: LINES/DEVICES: None. LUNGS: No consolidation. No pneumothorax. MEDIASTINUM: Aorta is tortuous and atherosclerotic. CARDIAC SILHOUETTE: Not enlarged. BONES AND SOFT TISSUES: Degenerative changes of the dorsal spine. RAD/Chest PA and Lateral IMPRESSION: No evidence of active intrathoracic disease. Electronically Signed: Yesy Lai MD at 0:20 EDT ,
--- NOTE | 2022-07-12 23:27 | EKG12_ITS ---
Test Reason : DYSRHYTHMIA Blood Pressure : / mmHG Vent. Rate : 115 BPM Atrial Rate : 115 BPM P-R Int : 148 ms QRS Dur : 074 ms QT Int : 310 ms P-R-T Axes : 074 057 035 degrees QTc Int : 428 ms Sinus tachycardia Nonspecific ST abnormality Abnormal ECG Confirmed by LATRICE DURAN, GABRIELLE ([id number]), editor in chief JOSE BLACK ([id number]) on 07/14/2022 7:01:44 AM Referred By: RASHEED Confirmed By:DESEAN POLLARD MD
--- NOTE | 2022-07-12 23:28 | EX.ED.DYSGE1 ---
HPI History of Present Illness Chief Complaint: Shortness of Breath Informant: patient and spouse/S.O. Narrative Narrative: 4-day history of fever nonproductive cough symptoms worsened this evening. Tmax 102.4 status post exercising Tylenol. Myalgias throughout. Vaccinated for COVID and influenza. Has had COVID in the past without any hospitalization. History of lupus. Denies COPD or asthma. No wheezing at home. No dysuria. Denies sick contacts. Decreased p.o. intake. Currently nauseated. Denies vomiting or diarrhea. No allergies. PFSH PFS Medical History (Updated 07/13/22 @ 00:[address] Everett Naik, DO) Cervical spondylosis Chest pain HLD (hyperlipidemia) Hypothyroidism Lumbar spondylosis Lupus (systemic lupus erythematosus) Home Medications levothyroxine 75 mcg tablet 75 mcg PO DAILY 07/04/18 [History Last Taken 07/04/18] tramadol 50 mg tablet 50 mg PO Q8H PRN Pain 07/04/18 [History Last Taken 07/04/18 11:00] cholecalciferol (vitamin D3) 1,250 mcg (50,000 unit) capsule 1,250 mcg PO QWEEK 12/23/21 [History Last Taken Unknown] lisinopril 10 mg tablet 5 mg PO DAILY 12/23/21 [History Last Taken Unknown] meclizine 25 mg tablet 25 mg PO DAILY PRN 12/23/21 [History Last Taken Unknown] methocarbamol 750 mg tablet 750 mg PO Q8H 12/23/21 [History Last Taken Unknown] methylprednisolone 4 mg tablet 4 mg PO DAILY PRN 12/23/21 [History Last Taken Unknown] ondansetron 4 mg disintegrating tablet 4 mg PO Q8H PRN PRN Nausea #10 tabs 07/13/22 [Rx Last Taken Unknown] Allergy/AdvReac Type Severity Reaction Status Date / Time meperidine HCl [From Demerol] Allergy Other Verified 07/12/22 23:13 povidone-iodine Allergy Rash Verified 07/12/22 23:13 [From Betadine] soap [From Betadine] Allergy Rash Verified 07/12/22 23:13 trimethobenzamide HCl Allergy Other Verified 07/12/22 23:13 [From Tigan] ezetimibe [From Zetia] AdvReac Pain in Verified 07/12/22 23:13 joints hydrocodone bitartrate AdvReac Nausea/Vom/ Verified 07/12/22 23:13 [From Vicodin] Diarrhea oxycodone HCl [From Percodan] AdvReac Nausea/Vom/ Verified 07/12/22 23:13 Diarrhea oxycodone terephthalate AdvReac Nausea/Vom/ Verified 07/12/22 23:13 [From Percodan] Diarrhea Family History Mother Myocardial infarction Surgical History H/O colectomy History of cholecystectomy History of hysterectomy Social History Smoking Status: Never smoker alcohol intake: never caffeine: Yes ROS ROS ED Constitutional Constitutional ED: Reports fever(s); Denies chills or sweats Eyes Eyes: Denies change in vision ENT ENT ED: Denies dysphagia or sore throat Cardiovascular Cardiovascular: Denies chest pain, leg edema, palpitations or racing heartbeat Respiratory/Chest Respiratory/Chest: Reports cough and dyspnea; Denies dyspnea on exertion Gastrointestinal Gastrointestinal: Reports nausea; Denies abdominal pain, diarrhea or vomiting Genitourinary Genitourinary ED: Denies dysuria, hematuria or urinary frequency Musculoskeletal Musculoskeletal: Reports myalgias; Denies back pain, extremity pain or neck pain Integumentary Denies rash or wounds Neurologic Neurologic: Denies headache(s), paresthesias or weakness EXAM Physical Exam Const Vital Signs: 07/12/22 23:08 07/12/22 23:08 07/12/22 23:33 Temperature 98.3 F Temperature Source Temporal Pulse Rate 121 H 128 H Respiratory Rate 21 H 24 H Respiratory Effort Short of Breath Accessory Muscle Use Respiratory Depth Deep Respiratory Pattern Tachypnea Tachypnea Blood Pressure 157/104 H Blood Pressure Mean 121 Pulse Ox 99 Oxygen Delivery Method Room Air Room Air 07/12/22 23:33 07/13/22 00:18 07/13/22 01:04 Temperature 98.2 F Temperature Source Oral Pulse Rate 123 H 120 H Respiratory Rate 20 H 23 H 18 Respiratory Effort Normal Non-Labored Short of Breath Respiratory Depth Shallow Respiratory Pattern Normal Blood Pressure 147/65 H 136/71 H Blood Pressure Mean 92 Pulse Ox 99 96 98 Oxygen Delivery Method Room Air Room Air Positive well nourished and well developed Constitutional Narrative: Coughing during exam nontoxic General Appearance ED: well developed and NAD HEENT Reports dry mucous membranes normocephalic and atraumatic Mouth ED: Yes dry mucous membranes Mouth: dry mucous membranes Eyes PERRL, EOMs intact bilaterally and conjunctivae normal General Eye ED: Yes normal appearance of both eyes Neck no lymphadenopathy and supple General: Negative for tenderness Chest Wall Chest: Negative for tenderness Resp Resp Narrative: Coarse breath sounds expiratory wheeze all 4 quadrants. No retractions. Effort and Inspection: symmetric chest movement; Negative for respiratory distress Cardio regular rhythm and no murmurs Rate: tachycardic Peripheral Pulses: pulses 2+ throughout GI normal to inspection, nondistended, normoactive bowel sounds and non-tender Palpation: Negative for guarding or rebound tenderness present Back/Spine no CVA tenderness and no thoracic nor lumbar tenderness Extremity normal to inspection General Extremety ED: Negative for edema or tenderness General Extremity: Negative for edema Neuro oriented x3, CN's II-XII intact bilaterally and no sensory deficits noted Sensorium / Orientation: awake and alert Skin no rashes or lesions noted and no wounds MDM MDM MDM Narrative Medical decision making narrative: Interventions / MDM: Differential diagnosis:Pneumonia, bronchitis, COVID, influenza, dehydration, BIBIANA Diagnosis considered but do not suspect: Pulmonary embolism is however not hypoxic and wheezing on exam, Pneumothorax however bilateral breath sounds and negative chest x-ray My EKG interpretation: Sinus rate of 115, no ST or T wave changes. Imaging independently reviewed and interpreted by myself: 2 view chest x-ray:No infiltrates no pneumothorax, no acute process External documents reviewed: N/A Test considered but not ordered:N/A ED course: Patient wheezing on exam. DuoNeb ordered, chest x-ray negative. Clinical dehydration she is given IV fluids labs first stable creatinine 0.81 potassium 3.3 white count 8.7. Oral replacement was given for potassium. Reevaluation improving there is still light wheezing she is ordered for albuterol MDI. She was given Zofran for nausea with improvement. She tolerating oral fluids. Meds to bed with Zofran. COVID and influenza negative. Discussed viral syndrome. She has no productive sputum for concerns for clinical pneumonia. She reported fever. Discussed continue antiemetics, inhaler for bronchospasms, oral fluids for hydration. Return precautions. All questions were answered. Re-evaluation: stable Sinus tachycardia on the monitor, she is given aerosol treatments which is likely increasing cause. No respiratory distress. Disposition discussed with patient/family/significant other: Patient and significant other Case discussed with consulting clinician: N/A Lab Data Labs: Laboratory Results - last 24 hr 07/12/22 07/12/22 23:10 23:10 WBC 8.7 RBC 4.06 L Hgb 12.5 Hct 38.5 MCV 94.8 MCH 30.8 MCHC 32.5 RDW Std Deviation 43.6 RDW Coeff of Elena 12.4 Plt Count 195 MPV 10.6 Immature Gran % (Auto) 0.700 Neut % (Auto) 61.7 Lymph % (Auto) 30.5 [place] % (Auto) 6.0 Eos % (Auto) 0.6 Baso % (Auto) 0.5 Absolute Neuts (auto) 5.4 Absolute Lymphs (auto) 2.66 Nucleated RBC % 0 Sodium 137 Potassium 3.3 L Chloride 103 Carbon Dioxide 24.0 Anion Gap 10 BUN 10 Creatinine 0.81 Estim Creat Clear Calc 46.00 Est GFR (MDRD) Af Amer 88 Est GFR (MDRD) Non-Af 73 BUN/Creatinine Ratio 12.3 Glucose 154 H Calcium 8.8 Radiography Diagnostic Testing: Clinical Impression(s) from Imaging Studies Chest X-Ray 07/12/22 23:27 IMPRESSION: No evidence of active intrathoracic disease. Electronically Signed: Yesy Lai MD at 0:20 EDT , Discharge Plan Triage Chief Complaint: Shortness of Breath ED Provider: Everett Naik Dx/Rx/DC Orders Clinical Impression: Bronchitis, Acute bronchospasm, Acute viral syndrome, Dehydration, Hypokalemia Instructions: Dehydration, ED Bronchospasm (Adult), ED Bronchitis with Wheezing (Adult), ED Viral Syndrome (Adult) Prescriptions: New ondansetron [ondansetron] 4 mg tablet,disintegrating 4 mg PO Q8H PRN PRN (Reason: Nausea) Qty: 10 0RF No Action methocarbamol 750 mg tablet 750 mg PO Q8H Rx Instructions: 2 tabs q 4 hrs cholecalciferol (vitamin D3) 1,250 mcg (50,000 unit) capsule 1,250 mcg PO QWEEK meclizine 25 mg tablet 25 mg PO DAILY PRN methylprednisolone 4 mg tablet 4 mg PO DAILY PRN Rx Instructions: 3 tabs qday for lupus flare lisinopril 10 mg tablet 5 mg PO DAILY tramadol 50 MG tablet 50 mg PO Q8H PRN (Reason: Pain) levothyroxine 75 MCG tablet 75 mcg PO DAILY Primary Care Provider: Jon Hess Referrals: Jon Hess DO [Primary Care Provider] - 3-5 Days Activity Restrictions/Additional Instructions: Chest x-ray negative Labs stable clinical dehydration. COVID and flu negative. Use inhaler for wheezing. Add humidifier to room, vapor rubs to help with symptoms. Continue oral fluids at home for hydration. Return if worsening symptoms. Disposition Disposition: Home, Self Care Discharge Date/Time: 07/13/22 01:28
[2022-07-12 23:33] VITALS: PULSE 128; RESP 20; RESP 24; O2SAT 99
[2022-07-12] MEDS: Ipratropium/Albuterol Sulfate 3 ML AMPUL.NEB INHALATION (23:33)
[2022-07-12] MEDS: Ondansetron 4 MG/2 ML Vial IV (23:33)
[2022-07-12] MEDS: 0.9% Normal Saline 1,000 ML 1000 ML IV (23:34)
[2022-07-12 23:45] LABS: Absolute Lymphocyte Count 2.66 X10^3/uL (0.83-4.51); Absolute Neutrophil Count 5.4 X10^3/uL (2.0-7.7); Basophil# 0.04 X10^3/uL; Basophil% 0.5 % (0-1); Eosinophil# 0.05 X10^3/uL; Eosinophils% 0.6 % (0-5); Hematocrit 38.5 % (37-47); Hemoglobin 12.5 g/dL (12.0-15.0); Lymphocyte # 2.66 X10^3/ul (0.83-4.51); Lymphocyte % 30.5 % (19-41); Mean Corp Hgb Conc 32.5 g/dL (32-36); Mean Corpuscular Hgb 30.8 pg (27.0-32.0); Mean Corpuscular Volume 94.8 fL (81-99); Mean Platelet Vol. 10.6 fl (6.2-12.0); Monocyte# 0.52 X10^3/uL; NRBC Flagged by Analyzer 0 % (0-5); Neutrophil # 5.39 X10^3/uL (2.7-7.7); Neutrophil % 61.7 % (47-70); Platelet Count 195 K/mm3 (150-450); RBC Distribution Width CV 12.4 % (11.6-14.6); RBC Distribution Width SD 43.6 fl (35.1-43.9); Red Blood Count 4.06 M/mm3 (4.2-5.4); White Blood Count 8.7 K/mm3 (4.4-11.0)
[2022-07-13 00:07] LABS: Anion Gap 10 (5-15); BUN 10 mg/dL (7-18); BUN/Creat Ratio 12.3 RATIO (10-20); Calcium,Total 8.8 mg/dL (8.5-10.1); Chloride 103 mmol/L (98-107); Creatinine, Serum 0.81 mg/dL (0.55-1.02); EST Glomerular Filtration Rate 73 mL/min (>60); Est Glom Filt Rate - Afr Amer 88 mL/min (>60); Glucose 154 mg/dL (74-106); Potassium 3.3 mmol/L (3.5-5.1); Sodium Level 137 mmol/L (136-145)
[2022-07-13 00:18] VITALS: BP 147/65; PULSE 123; RESP 23; TEMP 36.8; O2SAT 96
[2022-07-13] MEDS: Potassium Chloride Oral Tablet 20 MEQ 40 MEQ PO (00:39)
[2022-07-13] MEDS: Albuterol Sulfate 8 gm Inhaler (60 puffs) 2 PUFF INHALATION (00:56)
[2022-07-13 01:04] VITALS: BP 136/71; PULSE 120; RESP 18; O2SAT 98
== END 2022-07-13 01:28 | disposition home or self-care (01) ==
PROVIDERS: Emergency Provider Emergency Medicine; PCP Family Medicine; Visit Provider Emergency Medicine
DX: J40 Bronchitis, not specified as acute or chronic (principal); E86.0 Dehydration; E78.5 Hyperlipidemia, unspecified; B34.9 Viral infection, unspecified; E87.6 Hypokalemia; Z20.822 Contact with and (suspected) exposure to COVID-19; J98.01 Acute bronchospasm
CPT/HCPCS: 71046; 80048; 85025; 87428; 93005; 94640; 96361; 96374; 99252; 99285; A4216; G0463; J2405

== ENCOUNTER → 2022-09-26 | Outpatient (CLI) | payer MEDICARE, SELFPAY ==
[2022-09-26 17:41] LABS: Absolute Lymphocyte Count 1.93 X10^3/uL (0.83-4.51); Absolute Neutrophil Count 3.5 X10^3/uL (2.0-7.7); Basophil% 1.6 % (0-1); Eosinophil# 0.22 X10^3/uL; Eosinophils% 3.6 % (0-5); Hematocrit 39.5 % (37-47); Hemoglobin 12.3 g/dL (12.0-15.0); Lymphocyte # 1.93 X10^3/ul (0.83-4.51); Lymphocyte % 31.2 % (19-41); Mean Corp Hgb Conc 31.1 g/dL (32-36); Mean Corpuscular Hgb 30.3 pg (27.0-32.0); Mean Corpuscular Volume 97.3 fL (81-99); Mean Platelet Vol. 11.2 fl (6.2-12.0); Monocyte# 0.41 X10^3/uL; Monocyte% 6.6 % (0-10); NRBC Flagged by Analyzer 0 % (0-5); Neutrophil # 3.52 X10^3/uL (2.7-7.7); Neutrophil % 56.8 % (47-70); Platelet Count 271 K/mm3 (150-450); RBC Distribution Width CV 13.4 % (11.6-14.6); RBC Distribution Width SD 48.5 fl (35.1-43.9); Red Blood Count 4.06 M/mm3 (4.2-5.4); White Blood Count 6.2 K/mm3 (4.4-11.0)
[2022-09-26 18:20] LABS: AST(SGOT) 20 U/L (15-37); Alanine Aminotransfer ALT/SGPT 19 U/L (13-56); Albumin, Serum 3.8 g/dL (3.2-5.0); Alkaline Phosphatase 58 U/L (45-117); Anion Gap 7 (5-15); BUN 19 mg/dL (7-18); BUN/Creat Ratio 15.8 RATIO (10-20); Calcium,Total 9.3 mg/dL (8.5-10.1); Chloride 108 mmol/L (98-107); EST Glomerular Filtration Rate 46 mL/min (>60); Est Glom Filt Rate - Afr Amer 56 mL/min (>60); Globulin 3.7 g/dL (2.2-4.2); Glucose 117 mg/dL (74-106); Potassium 4.7 mmol/L (3.5-5.1); Protein, Total 7.5 g/dL (6.4-8.2); Sodium Level 144 mmol/L (136-145); T4 Free Direct 0.96 ng/dL (0.76-1.46); Thyroid Stim Hormone (TSH) 2.24 uIU/mL (0.358-3.74)
== END | disposition home or self-care (01) ==
LOC: BFHLAB 14:59
PROVIDERS: PCP Family Medicine; Referring Provider Family Medicine; Visit Provider Family Medicine
DX: R53.83 Other fatigue (principal); R63.4 Abnormal weight loss; E03.9 Hypothyroidism, unspecified
CPT/HCPCS: 36415; 80053; 84439; 84443; 85025

== ENCOUNTER → 2022-09-29 | Outpatient (CLI) | payer MEDICARE, SELFPAY ==
[2022-09-29 12:46] LABS: Erythrocyte Sedimentation Rate 15 mm/hr (0-30)
[2022-09-29 13:00] LABS: Anion Gap 4 (5-15); BUN 16 mg/dL (7-18); BUN/Creat Ratio 16.7 RATIO (10-20); CRP < 2.90 mg/L (0.0-3.0); Calcium,Total 9.5 mg/dL (8.5-10.1); Chloride 108 mmol/L (98-107); Creatinine, Serum 0.96 mg/dL (0.55-1.02); EST Glomerular Filtration Rate 60 mL/min (>60); Est Glom Filt Rate - Afr Amer 73 mL/min (>60); Glucose 94 mg/dL (74-106); Potassium 4.5 mmol/L (3.5-5.1); Sodium Level 139 mmol/L (136-145)
[2022-09-29 13:10] LABS: PTHIN 51.9 pg/mL (18.4-80.1)
[2022-09-29 15:27] LABS: Color, Urine Yellow (Yellow); Glucose, Dipstick Normal (Normal); Ketone-Dipstick 5 mg/dl (Negative); Leukocyte Esterase-Dipstick 25 /ul (Negative); Nitrite-Dipstick Negative (Negative); Occult Blood-Urine Negative /ul (Negative); Protein-Dipstick 15 mg/dl (Negative); Urine Bilirubin Dipstick Negative (Negative); Urine Clarity Clear (Clear); Urine Urobilinogen Normal (Normal)
[2022-09-29 16:09] LABS: Microalbumin,Random Urine 33.4 mg/L (NO RANGE EST.); Microalbumin:Creatinine Ratio 24.6 mg/g CRE (<30 mg/g CRE)
== END | disposition home or self-care (01) ==
LOC: LAB.FUTURE 09:37 → BFHLAB 09:38
PROVIDERS: PCP Family Medicine; Referring Provider Family Medicine; Visit Provider Family Medicine
DX: R79.89 Other specified abnormal findings of blood chemistry (principal); M32.9 Systemic lupus erythematosus, unspecified
CPT/HCPCS: 36415; 80048; 81002; 82043; 82570; 83970; 84166; 85652; 86140; 86160; 86225; 86235

== ENCOUNTER → 2022-10-17 | Outpatient (CLI) | payer MEDICARE, SELFPAY ==
--- NOTE | 2022-10-17 09:06 | BI_ITS ---
MAMMOGRAPHY - BILATERAL SCREENING REASON FOR EXAM: Female, 77 years old. Routine annual screening examination. PERTINENT HISTORY: Remote history of left breast excisional biopsy in 2000. Remote history of right breast biopsy in the . TECHNIQUE: Digital bilateral breast matt (3D mammographic acquisition) in the CC and MLO projections. 2-D mediolateral oblique (MLO) and craniocaudad (CC) views of both breasts were obtained. CAD: Full Field Digital Mammography with Computer Added Detection was performed. COMPARISON: None. FINDINGS: Breast Composition: The breasts are heterogeneously dense, which may obscure small masses. There are no dominant masses or suspicious calcifications. There is a biopsy marker in the right slightly upper inner breast. No other significant abnormalities are identified. BI/SCRN MAMM (CAD)W/MATT BILAT IMPRESSION: Negative screening mammogram. Yearly followup mammogram recommended. (A) ASSESSMENT CATEGORY: BIRADS Category 2: Benign. A letter regarding these results will be sent to the patient by the facility within 30 days. Approximately 10% of breast cancers are not detected by mammography. A normal mammogram should not delay biopsy of a clinically suspicious abnormality. Electronically Signed: Oleksandr Mead DO at 15:22 EDT ,
--- NOTE | 2022-10-17 09:15 | BD_ITS ---
STUDY: DUAL ENERGY X-RAY ABSORPTIOMETRY / DXA REASON FOR EXAM: Female, 77 years old. 627.8Menopausal postmenopausal BONE DENSITY REASON FOR EXAM TECHNIQUE: Bone Mineral Density (BMD) measurements of lumbar spine and bilateral hips were obtained. COMPARISON: Comparison is made with prior study dated October 15, 2014. FINDINGS: Lumbar Spine (L1-L4): g/cm2 (0.909) / T-score (-1.3) / Z-score (1.3) Findings are suggestive of osteopenia with a low fracture risk. Left Femur Total: g/cm2 (0.699) / T-score (-2.0) / Z-score (-0.1) Left Femoral Neck: g/cm2 (0.626) / T-score (-2.0) / Z-score (0.2) Right Femur Total: g/cm2 (0.695) / T-score (-2.0) / Z-score (-0.1) Right Femoral Neck: g/cm2 (0.597) / T-score (-2.3) / Z-score (-0.1) The T-Scores on the most recent prior examination were: Lumbar Spine (L1-L4): There has been worsening of bone density since the previous examination. Left Femur Total: which represents a worsening of 13.8%. Right Femur Total: which represents a worsening of 18%. BD/Dexa Bone Density Study IMPRESSION: The patient is considered osteopenic as outlined below according to World [place] Organization (WHO) criteria with a high fracture risk. There has been worsening of bone density since the previous examination. Reference Information: The T-score is the number of standard deviations above or below the standard which is normal for young adults at their peak bone mineral density. The World Health Organization (WHO) interprets the T-scores as follows: Above -1 Normal bone density Between -1 and -2.5 Osteopenia Equal to / or below -2.5 Osteoporosis As a practical clinical guideline, osteopenia may be graded as follows: Mild -1 through -1.5 Moderate -1.6 through -2.0 Severe -2.1 through -2.4 The Z-score is the number of standard deviations above or below age-matched controls. A Z-score of less than -1.5 would be considered abnormal. References: 1. NIH Osteoporosis and Related Bone Diseases www osteo.org 2. International Society for Clinical Densitometry www iscd.org 3. National Osteoporosis Foundation www nof.org Electronically Signed: Martin Thorne MD at 12:25 EDT ,
== END | disposition home or self-care (01) ==
LOC: OPBI 09:04
PROVIDERS: PCP Family Medicine; Referring Provider Family Medicine; Visit Provider Family Medicine
DX: Z12.31 Encounter for screening mammogram for malignant neoplasm of breast (principal); N95.9 Unspecified menopausal and perimenopausal disorder
CPT/HCPCS: 77063; 77067; 77080

== ENCOUNTER → 2023-06-18 | Outpatient (CLI) | payer MEDICARE, SELFPAY ==
--- NOTE | 2023-06-18 14:25 | RAD_ITS ---
INDICATION: PAIN AND SWELLING EXAMINATION/TECHNIQUE: X-RAY - LEFT XR Knee Complete 4 Views or More COMPARISON: None. FINDINGS: No acute fracture or malalignment. Moderate, medial compartment predominant, tricompartmental joint space narrowing and osteophytosis. No joint effusion. The soft tissues are unremarkable. RAD/Knee 4 or More Views IMPRESSION: No acute abnormalities. Moderate, medial compartment predominant, tricompartmental degenerative arthrosis of the knee. Electronically Signed: Darrius Byrd MD at 21:00 EST ,
== END | disposition home or self-care (01) ==
LOC: MTRAD 14:08
PROVIDERS: PCP Family Medicine; Referring Provider Family Medicine; Visit Provider Family Medicine
DX: M25.562 Pain in left knee (principal)
CPT/HCPCS: 73564

== ENCOUNTER → 2023-08-04 | Outpatient (CLI) | payer MEDICARE, SELFPAY ==
--- NOTE | 2023-08-04 08:44 | MRI_ITS ---
STUDY: MRI LEFT KNEE REASON FOR EXAM: Female, 78 years old. Severe knee pain. TECHNIQUE: Standardized fat and water weighted pulse sequences were obtained in all 3 orthogonal planes. COMPARISON: X-rays of the left knee showing mild tricompartmental arthrosis. FINDINGS: Normal medial meniscus. Moderate thinning of the articular cartilage of the medial femorotibial compartment (coronal series 6 images 11-19). Normal medial femoral condyle and tibial plateau. Mild MCL sprain (coronal series 6 images 12-15). Normal distal semimembranosus, gracilis and semitendinosus tendons. Oblique undersurface tear of the anterior horn of the lateral meniscus (coronal series 6 images 15-17). Moderate thinning of the articular cartilage of the lateral femorotibial compartment (coronal series 6 images 11-19). Normal lateral femoral condyle and tibial plateau. Normal proximal tibiofibular articulation. Normal lateral collateral (fibular) ligament. Normal popliteus tendon. Normal biceps femoris tendon. Normal anterior cruciate ligament (ACL). Normal posterior cruciate ligament (PCL). Lateral tilt and subluxation of the patella with moderate thinning of the articular cartilage of the patellofemoral compartment (axial series 2 images 5-14). Normal medial and lateral patellar retinaculum. Normal quadriceps tendon. Normal patellar tendon. Normal Hoffa''s fat pad. Deep infrapatellar bursitis (sagittal series 4 image 16). Moderate-sized joint effusion with lateral plica and large dissecting septated popliteal cyst which has ruptured posteriorly with resulting medial posterior compartmental interstitial edema (axial series 2 images 4-25). Prepatellar subcutaneous soft tissue edema (sagittal series 4 image 14). Other visualized osseous structures show no abnormality. MRI/Lower Ext Joint Only (Routine) IMPRESSION: Small undersurface oblique tear of the anterior horn of the lateral meniscus. Moderate thinning of the articular cartilage of the medial and lateral femorotibial compartments. Lateral tilt and subluxation of the patella with moderate thinning of the articular cartilage of the patellofemoral compartment. Prepatellar subcutaneous soft tissue edema. Moderate-sized joint effusion with lateral plica. Large dissecting septated popliteal cyst with rupture medially resulting in mild posterior compartmental interstitial edema. Electronically Signed: Oscar Hernandez MD at 10:26 EDT ,
== END | disposition home or self-care (01) ==
LOC: MRI 08:26
PROVIDERS: PCP Family Medicine; Referring Provider Family Medicine; Visit Provider Family Medicine
DX: M25.562 Pain in left knee (principal); M25.462 Effusion, left knee
CPT/HCPCS: 73721

== ENCOUNTER → 2023-10-26 | Outpatient (CLI) | payer MEDICARE, SELFPAY ==
--- NOTE | 2023-10-26 16:43 | RAD_ITS ---
INDICATION: PAIN EXAMINATION/TECHNIQUE: X-RAY - XR Hip Unilateral with Pelvis when performed; 2-3 Views COMPARISON: [X-rays 07/29/2014. FINDINGS: No fracture demonstrated. The femoral heads are normal in contour. No dislocation of the hips. Mild degenerative changes of the hips with joint space narrowing and subchondral sclerosis, greater on the left. Degenerative changes at the lower lumbar spine. Surgical sutures noted in the pelvis. RAD/HIP, UNI W/ Pelvis 2-3 Views IMPRESSION: No evidence of fracture. Mild degenerative changes of the hips greater on the left. Electronically Signed: Yesy Lai MD at 22:43 EDT ,
== END | disposition home or self-care (01) ==
LOC: MTRAD 16:42
PROVIDERS: PCP Family Medicine; Visit Provider Family Medicine
DX: M25.552 Pain in left hip (principal)
CPT/HCPCS: 73502

== ENCOUNTER → 2023-11-12 | Outpatient (CLI) | payer MEDICARE, SELFPAY ==
[2023-11-12 12:09] LABS: Absolute Lymphocyte Count 2.06 X10^3/uL (0.83-4.51); Absolute Neutrophil Count 3.6 X10^3/uL (2.0-7.7); Basophil% 1.6 % (0-1); Eosinophil# 0.13 X10^3/uL; Eosinophils% 2.1 % (0-5); Hemoglobin 13.2 g/dL (12.0-15.0); Lymphocyte # 2.06 X10^3/ul (0.83-4.51); Lymphocyte % 32.7 % (19-41); Mean Corp Hgb Conc 31.4 g/dL (32-36); Mean Corpuscular Hgb 30.4 pg (27.0-32.0); Mean Corpuscular Volume 96.8 fL (81-99); Mean Platelet Vol. 10.6 fl (6.2-12.0); Monocyte# 0.39 X10^3/uL; Monocyte% 6.2 % (0-10); NRBC Flagged by Analyzer 0 % (0-5); Neutrophil % 57.1 % (47-70); Platelet Count 296 K/mm3 (150-450); RBC Distribution Width CV 12.3 % (11.6-14.6); RBC Distribution Width SD 43.9 fl (35.1-43.9); Red Blood Count 4.34 M/mm3 (4.2-5.4); White Blood Count 6.3 K/mm3 (4.4-11.0)
[2023-11-12 12:39] LABS: ALB/GLOB Ratio 0.9 RATIO (0.9-2.4); AST(SGOT) 23 U/L (15-37); Alanine Aminotransfer ALT/SGPT 23 U/L (13-56); Albumin, Serum 3.7 g/dL (3.2-5.0); Alkaline Phosphatase 56 U/L (45-117); Anion Gap 8 (5-15); BUN 20 mg/dL (7-18); BUN/Creat Ratio 17.5 RATIO (10-20); Calcium,Total 9.2 mg/dL (8.5-10.1); Chloride 106 mmol/L (98-107); Creatinine, Serum 1.14 mg/dL (0.55-1.02); EST Glomerular Filtration Rate 49 mL/min (>60); Est Glom Filt Rate - Afr Amer 59 mL/min (>60); Globulin 3.9 g/dL (2.2-4.2); Glucose 110 mg/dL (74-106); Potassium 4.6 mmol/L (3.5-5.1); Protein, Total 7.6 g/dL (6.4-8.2); Sodium Level 140 mmol/L (136-145); Thyroid Stim Hormone (TSH) 1.59 uIU/mL (0.358-3.74)
== END | disposition home or self-care (01) ==
LOC: BFHLAB 10:21
PROVIDERS: PCP Family Medicine; Referring Provider Family Medicine; Visit Provider Family Medicine
DX: I10 Essential (primary) hypertension (principal); E03.9 Hypothyroidism, unspecified
CPT/HCPCS: 36415; 80053; 84439; 84443; 85025

== ENCOUNTER → 2024-08-07 | Outpatient (CLI) | payer MEDICARE, SELFPAY ==
--- NOTE | 2024-08-07 08:44 | RAD_ITS ---
EXAM: XR Right Ribs and AP Chest, 3 or More Views CLINICAL INDICATION: PAIN AFTER FALL TECHNIQUE: Frontal and oblique views of the right ribs and frontal view of the chest. COMPARISON: No relevant prior studies available. FINDINGS: LUNGS AND PLEURAL SPACES: Unremarkable. No consolidation. No pneumothorax. HEART: Unremarkable. No cardiomegaly. MEDIASTINUM: Unremarkable. Normal mediastinal contour. BONES/JOINTS: Unremarkable. No displaced rib fractures. RAD/Ribs Unil 2V No CXR IMPRESSION: No displaced rib fractures. Reading Location: [facility]
== END | disposition home or self-care (01) ==
LOC: MTRAD 08:41
PROVIDERS: PCP Family Medicine; Referring Provider Family Medicine; Visit Provider Family Medicine
DX: R07.81 Pleurodynia (principal)
CPT/HCPCS: 71100

== ENCOUNTER → 2024-09-18 | Outpatient (CLI) | payer MEDICARE, SELFPAY ==
[2024-09-18 10:47] LABS: Absolute Lymphocyte Count 1.51 X10^3/uL (0.83-4.51); Absolute Neutrophil Count 2.5 X10^3/uL (2.0-7.7); Basophil# 0.11 X10^3/uL; Basophil% 2.5 % (0-1); Eosinophils% 2.2 % (0-5); Hematocrit 38.9 % (37-47); Hemoglobin 12.5 g/dL (12.0-15.0); Lymphocyte # 1.51 X10^3/ul (0.83-4.51); Lymphocyte % 33.7 % (19-41); Mean Corp Hgb Conc 32.1 g/dL (32-36); Mean Corpuscular Hgb 30.7 pg (27.0-32.0); Mean Corpuscular Volume 95.6 fL (81-99); Mean Platelet Vol. 10.8 fl (6.2-12.0); Monocyte# 0.28 X10^3/uL; Monocyte% 6.3 % (0-10); NRBC Flagged by Analyzer 0 % (0-5); Neutrophil # 2.47 X10^3/uL (2.7-7.7); Neutrophil % 55.1 % (47-70); Platelet Count 269 K/mm3 (150-450); RBC Distribution Width CV 12.9 % (11.6-14.6); RBC Distribution Width SD 45.6 fl (35.1-43.9); Red Blood Count 4.07 M/mm3 (4.2-5.4); White Blood Count 4.5 K/mm3 (4.4-11.0)
[2024-09-18 12:08] LABS: ALB/GLOB Ratio 1.4 RATIO (0.9-2.4); AST(SGOT) 19 U/L (<=31); Alanine Aminotransfer ALT/SGPT 8 U/L (<=34); Albumin, Serum 4.1 g/dL (3.4-4.8); Alkaline Phosphatase 60 U/L (35-104); Anion Gap 10 (5-15); BUN 18 mg/dL (4-19); BUN/Creat Ratio 18.8 RATIO (10-20); Calcium,Total 9.4 mg/dL (7.6-11.0); Carbon Dioxide 25.6 mmol/L (21.0-32.0); Chloride 105 mmol/L (98-108); Creatinine, Serum 0.96 mg/dL (0.70-1.20); EST Glomerular Filtration Rate 60 (>60); Globulin 2.9 g/dL (2.2-4.2); Glucose 87 mg/dL (70-99); Potassium 4.6 mmol/L (3.3-5.1); Sodium Level 141 mmol/L (133-145)
== END | disposition home or self-care (01) ==
LOC: MTLAB 08:28
PROVIDERS: PCP Family Medicine; Referring Provider Family Medicine; Visit Provider Family Medicine
DX: I10 Essential (primary) hypertension (principal); E03.9 Hypothyroidism, unspecified; E55.9 Vitamin D deficiency, unspecified
CPT/HCPCS: 36415; 80053; 82306; 84439; 84443; 85025

== ENCOUNTER → 2025-02-16 | Outpatient (CLI) | payer MEDICARE, SELFPAY | END | disposition home or self-care (01) | PROVIDERS: PCP Family Medicine; Referring Provider Family Medicine; Visit Provider Family Medicine | DX: R30.0 Dysuria (principal) | CPT/HCPCS: 87086; 87088 ==